=== PATIENT | female | born 1945 | race Caucasian/White ===

== ENCOUNTER → 2017-01-07 | Outpatient (CLI) | payer BC ==
[~2017-01-07] MED LIST: AMOX500C3 PO; CHOL1TAB46 PO; COLE1TAB PO; GABA600T PO; LACTCAP3 PO; LORA10CA2 PO; MAGN400T5 PO; NSNN50; NZRCR TOP; PSYL0.524 PO; TRIA0.1C20 TOP; ZOLE5INJ IV
[2017-01-07 13:01] LABS: ALT/SGPT 18 U/L (12-78); AST/SGOT 15 U/L (15-37); BLOOD UREA NITROGEN 14 mg/dl (7-18); BUN/CREATININE RATIO 20.4 (10-20); CALCIUM 9.2 mg/dl (8.5-10.1); CARBON DIOXIDE 29 mmol/L (21-32); CHLORIDE 106 mmol/L (98-107); CHOLESTEROL 193 mg/dl (0-200); CREATININE 0.68 mg/dl (0.60-1.20); GLUCOSE 103 mg/dl (70-99); MAGNESIUM 1.6 mg/dl (1.8-2.4); SODIUM 141 mmol/L (136-145); TRIGLYCERIDES 67 mg/dl (0-150); VERY LOW DENSITY LIPOPROT CALC 13 mg/dl
[2017-01-07 13:11] LABS: ALB/GLOB RATIO 0.9 (0.9-2); ALKALINE PHOSPHATASE 77 U/L (45-117); CHOLESTEROL/HDL RATIO 2.1; HDL CHOLESTEROL 93 mg/dl; LDL CHOLESTEROL CALCULATED 87 mg/dl
== END | disposition home or self-care (01) ==
LOC: C.LABPVFM 08:15
PROVIDERS: ATTEND Family Medicine
DX: Z00.00 Encounter for general adult medical examination without abnormal findings (principal); Z79.899 Other long term (current) drug therapy

== ENCOUNTER → 2017-07-16 | Outpatient (CLI) | payer BC ==
--- NOTE | 2017-07-16 13:55 | MAMMOGRAPHY REPORT ---
UNILATERAL RIGHT DIGITAL SCREENING MAMMOGRAM TOMOSYNTHESIS WITH CAD: 07/16/2017 CLINICAL HISTORY: Asymptomatic. Personal history of breast cancer. TECHNIQUE: Breast tomosynthesis in addition to standard 2D mammography was performed. Current study was also evaluated with a Computer Aided Detection (CAD) system. COMPARISON: Comparison is made to exams dated: 07/15/2016 mammogram, 07/13/2015 mammogram, 05/26/2014 m ammogram, 05/25/2013 mammogram, 05/20/2012 mammogram, and 05/15/2011 mammogram - [facility]. BREAST COMPOSITION: There are scattered areas of fibroglandular density in the right breast. FINDINGS: There are no suspicious masses, calcifications, or areas of architectural distortion noted within the right breast. There has been no significant interval change compared to prior exams. IMPRESSION: ACR BI-RADS CATEGORY 2: BENIGN There is no mammographic evidence of malignancy in the right breast. A 1 year screening mammogram is recommended. The patient will receive written notification of the results. Approximately 10% of breast cancers are not detected with mammography. A negative mammographic report should not delay biopsy if a clinically suggestive mass is present. Belén Clarke M.D. ah/:07/16/2017 12:13:13 [employer] Manager: Kalee SANCHEZ(Antony)(M), [facility] letter sent: Normal 1/2 BI-RADS Code: ACR BI-RADS Category 2: Benign
== END | disposition home or self-care (01) ==
LOC: C.MAMM 11:25
PROVIDERS: ATTEND Obstetrics & Gynecology
DX: N64.89 Other specified disorders of breast (principal); Z85.3 Personal history of malignant neoplasm of breast; Z90.12 Acquired absence of left breast and nipple

== ENCOUNTER → 2017-07-31 | Outpatient (CLI) | payer BC | END | disposition home or self-care (01) | LOC: C.PAPS 11:40 | PROVIDERS: ATTEND Obstetrics & Gynecology | DX: Z01.411 Encounter for gynecological examination (general) (routine) with abnormal findings (principal); R87.616 Satisfactory cervical smear but lacking transformation zone; Z78.0 Asymptomatic menopausal state ==

== ENCOUNTER → 2017-09-07 | Day surgery (SDC) | payer BC ==
[2017-09-01 10:08] VITALS: Ht 172.7 cm; Wt 88.6 kg
[~2017-09-07] VITALS: Ht 172.7 cm; Wt 88.6 kg
[~2017-09-07] MED LIST changes: +BIOT1CAP8 PO; +CRAN1TAB6 PO; +FLUT0.15 NAE; -GABA600T PO; +JUICE PLUS PO; +LIDOCAINE HCL 2% 2 ML VIAL (20MG/ML) ONE; +MAGN1CAP4 PO; -MAGN400T5 PO; +MISCCAP52 PO; +MUPIOIN4 NAE; +NRN/300 PO; -NSNN50; -NZRCR TOP; +OMEP20TA PO; +PROPOFOL IV EMULSION 10 MG/ML 20 ML VIAL IV ONE; +SODIUM CHLORIDE 0.9% 500ML 500 ML IV ONE; -TRIA0.1C20 TOP
--- NOTE | 2017-09-07 08:54 | Endo History and Physical ---
History & Physical Date of Service: Sep 07, 2017. Chief Complaint: history of colon cancer,5 year F/U Referring Physician: Dr. Jimmie Betancourt History of Present Illness h/o colon cancer Past Surgical History Hx Cardiac Surgery: No Hx Internal Defibrillator: No Hx Pacemaker: No Hx Abdominal Surgery: Yes (TUBAL LIGATION) Hx of Implantable Prosthesis: No Hx Post-Op Nausea and Vomiting: No Hx Cancer Surgery: Yes (COLON CANCER REMOVAL WITH COLOSTOMY AND REVERSAL) Hx Thoracic Surgery: Yes (LUNG SURGERY FOR SARCOIDOSIS) Hx Orthopedic: Yes (LT LEG SURGERY X2, LT DEVIN) Hx Urinary Tract Surgery: No (UPPER FACE LIFT, TONSILLECTOMY) Family History None Social History Smoking Status: Never Smoker Hx Substance Use: No Hx Alcohol Use: Yes (1 DRINK/DAY) Allergies Coded Allergies: Nickel (Verified Allergy, Unknown, ITCHY RASH, 09/01/17) Succinylcholine (Verified Allergy, Unknown, DIFFICULTY REVERSING MEDICATION AFTER PROCEDURE, 09/01/17) Current Medications Reported Home Medications Medications Dose Route/Sig Max Daily Dose Days Date Category Bactroban Nasal (Mupirocin Calcium) 2 % Oin 1 Gm ANGELO BID PRN 09/01/17 Reported [Juice Plus] 1 Tab PO UD 09/01/17 Reported Turmeric Curcumin ([employer] Products) 1 Cap Cap 1 Cap PO QAM 09/01/17 Reported Omeprazole 20 Mg Tab 1 Tab PO QAM 09/01/17 Reported Flonase Allergy Relief (Fluticasone Propionate (Nasal)) 50 Mcg/Act Spr 2 Sprays ANEGLO BID 09/01/17 Reported Cranberry (Cranberry (Vaccinium Macrocarp) 600 Mg Tab 1 Tab PO QAM 09/01/17 Reported Biotin 1 Mg Cap 1 Cap PO QAM 09/01/17 Reported Magnesium (Magnesium Oxide) 500 Mg Cap 1 Cap PO QPM 09/01/17 Reported Neurontin (Gabapentin) 300 Mg Cap 300 Mg PO BID 09/01/17 Reported Vitamin D3 (Cholecalciferol) 5,000 Unit Tab 1 Tab PO QPM 01/08/15 Reported Reclast (Zoledronic Acid) 5 Mg/100 Ml Inj 1 Dose IV YEARLY 01/08/15 Reported Metamucil (Psyllium) 0.52 Gm Cap 1 Cap PO QPM 01/08/15 Reported Colestid (Colestipol Hcl) 1 Gm Tab 3 Tabs PO QPM 01/08/15 Reported Colestid (Colestipol Hcl) 1 Gm Tab 8 Tabs PO QAM 01/08/15 Reported Claritin (Loratadine) 10 Mg Cap 10 Mg PO DAILY PRN 01/08/15 Reported Amoxil (Amoxicillin) 500 Mg Cap 2,000 Mg PO DAILY PRN 01/08/15 Reported Acidophilus (Lactobacillus) 1 Cap Cap 1 Cap PO QPM 01/08/15 Reported Vital Signs Weight (Kilograms): 88.64 Height (Feet): 5 Height (Inches): 8 Date Time Temp Pulse Resp B/P (MAP) Pulse Ox O2 Delivery O2 Flow Rate FiO2 09/07/17 08:21 36.9 92 18 143/73 (96) 93 Room Air Physical Exam General Appearance: WD/WN Respiratory/Chest: Auscultation: breath sounds normal Cardiovascular: Heart Auscultation: RRR Abdomen: Inspection & Palpation: soft Assessment and Plan h/o colon cancer - cscopy
--- NOTE | 2017-09-07 09:41 | Discharge Instructions ---
Endoscopy Patient Instructions Date / Procedure(s) Performed Sep 07, 2017. Colonoscopy Allergy Information Coded Allergies: Nickel (Verified Allergy, Unknown, ITCHY RASH, 09/01/17) Succinylcholine (Verified Allergy, Unknown, DIFFICULTY REVERSING MEDICATION AFTER PROCEDURE, 09/01/17) Discharge Date / Findings Sep 07, 2017. Diminutive polyps, removed. Anal stenosis. Diverticulosis. Radiation proctitis. Medication Instructions Stopped Medication(s): STOPPED ALL SUPPLEMENTS ON THURSDAY Provider Instructions Activity Restrictions - No exercising or heavy lifting for 24 hours. - Do not drink alcohol the day of the procedure. - Do not drive a car or operate machinery until the day after the procedure. - Do not make any important decisions or sign important papers in 24 hours after the procedure. Following Day: - Return to full activity which may include returning to work/school. Diet Start your diet with liquids and light foods (jello, soup, juice, toast). Then eat your usual diet if not nauseated. Treatment For Common After Affects For mild abdominal pain, bloating, or excessive gas: - Rest - Eat lightly - Lie on right side Follow-Up Information Follow-up with Dr. Jimmie Betancourt as scheduled Anesthesia Information What You Should Know You have had a procedure that required some medicine to reduce anxiety and discomfort. This treatment is called moderate sedation. After receiving the treatment, you may be sleepy, but you will be able to breathe on your own. The effects of the treatment may last for several hours. Follow these instructions along with Activity/Diet recommendations noted above: * Do NOT do anything where dizziness or clumsiness would be dangerous. * Rest quietly at home today, then you can be up and about tomorrow. * Have a responsible person stay with you the rest of today. * You may have had an I.V. today. If so, you may take the dressing off later today. Recommendations Call your doctor if: * Trouble breathing * Continuous vomiting for more than 24 hours * Temperature above 101 degrees * Severe abdominal pain or bloating * Pain not relieved by pain medicine ordered * There is increased drainage or redness from any incision * A large amount of rectal bleeding greater than 2-3 tablespoons. (If you had a polyp/s removed or have hemorrhoids, a small amount of blood - from the rectum is to be expected.) * You have any unanswered questions or concerns. IN THE EVENT OF A SERIOUS EMERGENCY, GO TO THE NEAREST EMERGENCY ROOM Your discharge instructions were prepared by provider Tosin Weiner. Patient Instructions Signature Page Josefa Osuna Patient (or Guardian) Signature/Date: I have read and understand the instructions given to me by my caregivers. Caregiver/RN/Doctor Signature/Date: The above-named patient and/or guardian has received patient instructions on this date. + Original Patient Signature Page (only) stays with chart. Please make copy for patient.
--- NOTE | 2017-09-07 09:41 | GI REPORT ---
Procedure Date: 09/07/2017 8:57 AM Procedure: Colonoscopy Indications: High risk colon cancer surveillance: Personal history of colon cancer Medicines: See the Anesthesia note for documentation of the administered medications Complications: No immediate complications. Estimated Blood Loss: Estimated blood loss: none. Procedure: Pre-Anesthesia Assessment: - ASA Grade Assessment: II - A patient with mild systemic disease. After I obtained informed consent, the scope was passed under direct vision. Throughout the procedure, the patient's blood pressure, pulse, and oxygen saturations were monitored continuously. The scope was introduced through the anus and advanced to the cecum, identified by appendiceal orifice and ileocecal valve. The colonoscopy was performed without difficulty. The patient tolerated the procedure well. The quality of the bowel preparation was good. Findings: There was marked anal stenosis; I could not pass my finger through her anal canal. An upper endoscope was used to complete her colonoscopy. There were changes of radiation proctitis in the rectum, with a small rectum and a moderate number of small telangiectasias in the rectum. Rectal retroflexion was not performed. There was an end-to-side anastamosis at 27 cm. There were a few sigmoid diverticula. Two 1-2 mm polyps seen in the sigmoid colon, removed with a biopsy forceps. The remainder of the colon was normal. Impression: Anal stenosis. Radiation proctitis. Unremarkable anastamosis. Diverticulosis. Diminutive polyps. Recommendation: Repeat exam in 5 years for CRC surveillance. - Discharge patient to home. Tosin Wick M.D. Tosin Wick MD 09/07/2017 9:40:48 AM This report has been signed electronically. Note Initiated On: 09/07/2017 8:57 AM I attest to the content of the Intraoperative Record and orders documented therein, exceptions below
[2017-09-07 10:04] VITALS: BP 135/78; PULSE 79; O2SAT 94
--- NOTE | 2017-09-07 10:16 | Anesthesiology Progress Note ---
Anesthesia Post Op Note Date & Time Sep 07, 2017 at 10:16 Vital Signs Pain Intensity: 0 Vital Signs Past 12 Hours Date Time Temp Pulse Resp B/P (MAP) Pulse Ox O2 Delivery O2 Flow Rate FiO2 09/07/17 10:04 79 16 135/78 (97) 94 Room Air 09/07/17 09:49 76 16 150/60 (90) 94 Room Air 09/07/17 09:34 82 16 120/58 (78) 97 Room Air 09/07/17 08:21 36.9 92 18 143/73 (96) 93 Room Air Notes Mental Status: alert / awake / arousable, participated in evaluation Pt Amnestic to Procedure: Yes Nausea / Vomiting: adequately controlled Pain: adequately controlled Airway Patency, RR, SpO2: stable & adequate BP & HR: stable & adequate Hydration State: stable & adequate Anesthetic Complications: no major complications apparent
== END | disposition home or self-care (01) ==
LOC: C.GI 07:53
PROVIDERS: ATTEND Internal Medicine Gastroenterology
DX: Z12.11 Encounter for screening for malignant neoplasm of colon (principal); D12.5 Benign neoplasm of sigmoid colon; K62.4 Stenosis of anus and rectum; K62.7 Radiation proctitis; I78.1 Nevus, non-neoplastic; K57.30 Diverticulosis of large intestine without perforation or abscess without bleeding; Z85.038 Personal history of other malignant neoplasm of large intestine; Z98.0 Intestinal bypass and anastomosis status; Z79.899 Other long term (current) drug therapy

== ENCOUNTER → 2017-10-27 | Day surgery (SDC) | payer BC ==
[2017-10-21 13:27] VITALS: Ht 172.7 cm; Wt 88.6 kg
[~2017-10-27] VITALS: Ht 172.7 cm; Wt 88.6 kg
[~2017-10-27] MED LIST changes: -SODIUM CHLORIDE 0.9% 500ML 500 ML IV ONE
[2017-10-27 09:00] VITALS: TEMP 36.9
--- NOTE | 2017-10-27 10:08 | Endo History and Physical ---
History & Physical Date of Service: Oct 27, 2017. Chief Complaint: HISTORY OF COLON CANCER Referring Physician: DR CASTRO History of Present Illness H/o colon cancer Past Surgical History Hx Cardiac Surgery: No Hx Internal Defibrillator: No Hx Pacemaker: No Hx Abdominal Surgery: Yes (TUBAL LIGATION) Hx of Implantable Prosthesis: No Hx Post-Op Nausea and Vomiting: No Hx Cancer Surgery: Yes (COLON CANCER REMOVAL WITH COLOSTOMY AND REVERSAL, LEFT MASTECTOMY W/RECONST) Hx Thoracic Surgery: Yes (LUNG SURGERY FOR SARCOIDOSIS) Hx Orthopedic: Yes (LT LEG SURGERY X2, LT DEVIN) Hx Urinary Tract Surgery: No Family History None Social History Smoking Status: Never Smoker Hx Substance Use: No Hx Alcohol Use: Yes (1 DRINK/DAY) Allergies Coded Allergies: Nickel (Verified Allergy, Unknown, ITCHY RASH, 10/27/17) Succinylcholine (Verified Allergy, Unknown, DIFFICULTY REVERSING MEDICATION AFTER PROCEDURE, 10/27/17) Current Medications Reported Home Medications Medications Dose Route/Sig Max Daily Dose Days Date Category Bactroban Nasal (Mupirocin Calcium) 2 % Oin 1 Gm ANGELO BID PRN 09/01/17 Reported [Juice Plus] 1 Tab PO UD 09/01/17 Reported Turmeric Curcumin ([employer] Natural Products) 1 Cap Cap 1 Cap PO QAM 09/01/17 Reported Omeprazole 20 Mg Tab 1 Tab PO QAM 09/01/17 Reported Flonase Allergy Relief (Fluticasone Propionate (Nasal)) 50 Mcg/Act Spr 2 Sprays ANGELO BID 09/01/17 Reported Cranberry (Cranberry (Vaccinium Macrocarp) 600 Mg Tab 1 Tab PO QAM 09/01/17 Reported Biotin 1 Mg Cap 1 Cap PO QAM 09/01/17 Reported Magnesium (Magnesium Oxide) 500 Mg Cap 1 Cap PO QPM 09/01/17 Reported Neurontin (Gabapentin) 300 Mg Cap 300 Mg PO BID 09/01/17 Reported Vitamin D3 (Cholecalciferol) 5,000 Unit Tab 1 Tab PO QPM 01/08/15 Reported Reclast (Zoledronic Acid) 5 Mg/100 Ml Inj 1 Dose IV YEARLY 01/08/15 Reported Metamucil (Psyllium) 0.52 Gm Cap 1 Cap PO QPM 01/08/15 Reported Colestid (Colestipol Hcl) 1 Gm Tab 3 Tabs PO QPM 01/08/15 Reported Colestid (Colestipol Hcl) 1 Gm Tab 8 Tabs PO QAM 01/08/15 Reported Claritin (Loratadine) 10 Mg Cap 10 Mg PO DAILY PRN 01/08/15 Reported Amoxil (Amoxicillin) 500 Mg Cap 2,000 Mg PO DAILY PRN 01/08/15 Reported Acidophilus (Lactobacillus) 1 Cap Cap 1 Cap PO QPM 01/08/15 Reported Vital Signs Weight (Kilograms): 88.64 Height (Feet): 5 Height (Inches): 8 Date Time Temp Pulse Resp B/P (MAP) Pulse Ox O2 Delivery O2 Flow Rate FiO2 10/27/17 09:00 36.9 98 20 145/79 (101) 94 Room Air Physical Exam General Appearance: no apparent distress Respiratory/Chest: Auscultation: breath sounds normal Cardiovascular: Heart Auscultation: RRR Abdomen: Inspection & Palpation: soft Assessment and Plan H/o colon cancer, polyps with HGD - flex sig
--- NOTE | 2017-10-27 10:58 | GI REPORT ---
Procedure Date: 10/27/2017 10:19 AM Procedure: Colonoscopy Indications: Follow-up for history of colon polyps - pt s/p h/o pelvic XRT for CRC, had diminutive polyp on surveillance exam in Aug 2017 with HGD now for followup Medicines: General Anesthesia Complications: No immediate complications. Estimated Blood Loss: Estimated blood loss: none. Procedure: Pre-Anesthesia Assessment: - ASA Grade Assessment: III - A patient with severe systemic disease. After I obtained informed consent, the scope was passed under direct vision. Throughout the procedure, the patient's blood pressure, pulse, and oxygen saturations were monitored continuously. The scope was introduced through the anus and advanced to the ileocolonic anastomosis. The colonoscopy was performed without difficulty. The patient tolerated the procedure well. The quality of the bowel preparation was good. Findings: There was marked anal stenosis. There were multiple telangiectasias just proximal to the anus. There was a small ulcer just proximal to the anus. There was a 1 mm polyp at 10 cm removed by biopsy forceps. There was a small ulcer at 20 with a flat pigmented spot. Edges of ulcer were biopsied. There were a few small sigmoid diverticula. There was an end to side ileo colonic anastamosis at 27 cm. Biopsies taken every 5 cm in four quadrants. Chromoscopy performed using methylene blue in the lavage solution; no dysplasia was noted. Recommendation: - Discharge patient to home. - Follow up pathology results. Tosin Wick M.D. Tosin Wick MD 10/27/2017 10:57:52 AM This report has been signed electronically. Note Initiated On: 10/27/2017 10:19 AM I attest to the content of the Intraoperative Record and orders documented therein, exceptions below
--- NOTE | 2017-10-27 10:59 | Discharge Instructions ---
Endoscopy Patient Instructions Date / Procedure(s) Performed Oct 27, 2017. Flex Sig Allergy Information Coded Allergies: Nickel (Verified Allergy, Unknown, ITCHY RASH, 10/27/17) Succinylcholine (Verified Allergy, Unknown, DIFFICULTY REVERSING MEDICATION AFTER PROCEDURE, 10/27/17) Discharge Date / Findings Oct 27, 2017. Diminutive polyp, XRT proctitis, small ulcers at anal verge and at 20 cm. Provider Instructions Activity Restrictions - No exercising or heavy lifting for 24 hours. - Do not drink alcohol the day of the procedure. - Do not drive a car or operate machinery until the day after the procedure. - Do not make any important decisions or sign important papers in 24 hours after the procedure. Following Day: - Return to full activity which may include returning to work/school. Diet Start your diet with liquids and light foods (jello, soup, juice, toast). Then eat your usual diet if not nauseated. Treatment For Common After Affects For mild abdominal pain, bloating, or excessive gas: - Rest - Eat lightly - Lie on right side Follow-Up Information Follow-up with DR CASTRO as scheduled Anesthesia Information What You Should Know You have had a procedure that required some medicine to reduce anxiety and discomfort. This treatment is called moderate sedation. After receiving the treatment, you may be sleepy, but you will be able to breathe on your own. The effects of the treatment may last for several hours. Follow these instructions along with Activity/Diet recommendations noted above: * Do NOT do anything where dizziness or clumsiness would be dangerous. * Rest quietly at home today, then you can be up and about tomorrow. * Have a responsible person stay with you the rest of today. * You may have had an I.V. today. If so, you may take the dressing off later today. Recommendations Call your doctor if: * Trouble breathing * Continuous vomiting for more than 24 hours * Temperature above 101 degrees * Severe abdominal pain or bloating * Pain not relieved by pain medicine ordered * There is increased drainage or redness from any incision * A large amount of rectal bleeding greater than 2-3 tablespoons. (If you had a polyp/s removed or have hemorrhoids, a small amount of blood - from the rectum is to be expected.) * You have any unanswered questions or concerns. IN THE EVENT OF A SERIOUS EMERGENCY, GO TO THE NEAREST EMERGENCY ROOM Your discharge instructions were prepared by provider Tosin Weiner. Patient Instructions Signature Page Josefa Enrrique Patient (or Guardian) Signature/Date: I have read and understand the instructions given to me by my caregivers. Caregiver/RN/Doctor Signature/Date: The above-named patient and/or guardian has received patient instructions on this date. + Original Patient Signature Page (only) stays with chart. Please make copy for patient.
--- NOTE | 2017-10-27 11:07 | Anesthesiology Progress Note ---
Anesthesia Post Op Note Date & Time Oct 27, 2017 at 11:07 Vital Signs Pain Intensity: 0 Vital Signs Past 12 Hours Date Time Temp Pulse Resp B/P (MAP) Pulse Ox O2 Delivery O2 Flow Rate FiO2 10/27/17 11:03 76 16 133/73 (93) 97 Room Air 10/27/17 10:48 70 13 116/62 (80) 97 Room Air 10/27/17 09:00 36.9 98 20 145/79 (101) 94 Room Air Notes Mental Status: alert / awake / arousable, participated in evaluation Pt Amnestic to Procedure: Yes Nausea / Vomiting: adequately controlled Pain: adequately controlled Airway Patency, RR, SpO2: stable & adequate BP & HR: stable & adequate Hydration State: stable & adequate Anesthetic Complications: no major complications apparent
[2017-10-27 11:18] VITALS: BP 149/77; PULSE 83; O2SAT 96
== END | disposition home or self-care (01) ==
LOC: C.GI 08:22
PROVIDERS: ATTEND Internal Medicine Gastroenterology
DX: Z12.11 Encounter for screening for malignant neoplasm of colon (principal); Z85.038 Personal history of other malignant neoplasm of large intestine; K62.4 Stenosis of anus and rectum; I78.1 Nevus, non-neoplastic; K63.5 Polyp of colon; K57.30 Diverticulosis of large intestine without perforation or abscess without bleeding; Z98.0 Intestinal bypass and anastomosis status; D86.9 Sarcoidosis, unspecified; K21.9 Gastro-esophageal reflux disease without esophagitis; G62.9 Polyneuropathy, unspecified; M19.90 Unspecified osteoarthritis, unspecified site; Z79.899 Other long term (current) drug therapy

== ENCOUNTER → 2017-12-28 | Outpatient (CLI) | payer BC ==
[~2017-12-28] MED LIST changes: -LIDOCAINE HCL 2% 2 ML VIAL (20MG/ML) ONE; -PROPOFOL IV EMULSION 10 MG/ML 20 ML VIAL IV ONE
[2017-12-28 14:07] LABS: ALBUMIN 3.4 gm/dl (3.4-5.0); ALT/SGPT 15 U/L (12-78); AST/SGOT 14 U/L (15-37); BLOOD UREA NITROGEN 10 mg/dl (7-18); CALCIUM 9.4 mg/dl (8.5-10.1); CARBON DIOXIDE 28 mmol/L (21-32); CREATININE 0.64 mg/dl (0.60-1.20); GLUCOSE 108 mg/dl (70-99); SODIUM 139 mmol/L (136-145)
[2017-12-28 14:11] LABS: ALKALINE PHOSPHATASE 109 U/L (45-117); CHOLESTEROL 188 mg/dl (0-200); LDL CHOLESTEROL CALCULATED 87 mg/dl; TOTAL PROTEIN 7.6 gm/dl (6.4-8.2)
== END | disposition home or self-care (01) ==
LOC: C.LABPVFM 08:15
PROVIDERS: ATTEND Nurse Practitioner Family
DX: Z00.00 Encounter for general adult medical examination without abnormal findings (principal); Z79.899 Other long term (current) drug therapy; E83.42 Hypomagnesemia

== ENCOUNTER 2025-09-10 12:49 | Inpatient (IN) ==
--- NOTE | 2025-09-10 13:15 | Emergency Department Note ---
Impression & Plan Closed fracture of right tibial plateau ED Provider Note CHIEF COMPLAINT: Difficulty walking HISTORY OF PRESENTING ILLNESS: This 80-year-old female patient presents to the emergency department via EMS for evaluation of difficulty ambulating. The patient states that she fell 8 days ago injuring the right knee. The patient saw her PCP and was getting better, but now she is unable to ambulate due to the pain. She has had continued swelling of the knee with increased swelling and warmth of the right lower extremity. She states that it seems like she twisted the right knee as she fell. She did not hit her head and there was no LOC. She is not on any blood thinners. She normally uses a walker to ambulate. She denies any neck or back pain. She denies any pain to the remainder of the extremities. Denies chest pain, SOB, abdominal pain, nausea, or vomiting. The patient was seen by her PCP on 09/04/2025. The patient apparently bent over to feed her cat and when she stood up her feet slid out from under her and she landed on her buttocks. She did not hit her head. Since that time she has had right knee pain and swelling. At the office visit the patient was apparently able to ambulate with minimal pain. Her PCP did not feel that x-rays are needed at that time. The patient did have a venous Doppler of the bilateral lower extremities on 08/31/2025 that showed no evidence for DVT. Bilateral GSV's are patent 2 months post Varithena. Appropriate closure bilateral GSV calf varices 2 months post Varithena. REVIEW OF SYSTEMS: See HPI for pertinent positives and pertinent negatives. ALLERGIES: Succinylcholine, nickel, ragweed MEDICATIONS: See below PAST MEDICAL HISTORY: See below PHYSICAL EXAM: VITALS: Vitals are noted on the nurse's note and reviewed by myself. GENERAL: No acute distress, non-diaphoretic. SKIN: The skin was without obvious lacerations or abrasions. See musculoskeletal exam. Capillary reflex less than 2 seconds. HEAD: Normocephalic. EYES: Pupils equal round and reactive to light and accommodation. Conjunctivae without injection, sclerae without icterus. Extraocular movements intact. NOSE: Patent without discharge. No septal hematoma or bleeding. MOUTH: Mucous membranes moist. Pharynx without erythema or exudate. Uvula midline. Airway patent. Tongue does not deviate. NECK: Supple without nuchal rigidity. Cervical spine is nontender. Full range of motion of the neck without tenderness. HEART: Regular rate and rhythm without murmurs gallops or rubs. LUNGS: Clear to auscultation bilaterally without wheezes, rales or rhonchi. No retractions or accessory muscle use. CHEST: No chest wall tenderness. ABDOMEN: Positive bowel sounds x 4. Normal tympanic percussion. Soft, nontender, without masses or organomegaly. No guarding or rebound tenderness. MUSCULOSKELETAL: No tenderness of the thoracic or lumbar spine or paraspinal muscles. No tenderness to palpation of the hips or pelvis. The patient is maximally tender to palpation over the entire right knee. She has decreased range of motion of the right knee due to pain. She is able to fully extend the right knee, but unable to flex the right knee much due to pain. There is also significant edema, warmth, and developing erythema to the right lower extremity especially compared to the left. However, the compartments are still soft and no significant tenderness to palpation over the compartments. No bony tenderness to palpation of the right femur, tib-fib, ankle, or foot of the right lower extremity. Full range of motion without tenderness to palpation in all remaining extremities. Bilateral dorsalis pedis and posterior tibial pulses 2+ and equal. The patient has peripheral neuropathy, but states that the sensation in her bilateral lower extremities is normal per her baseline. NEURO: Patient was alert and oriented to person place and time. Normal mental status exam. No focal neurological deficits. DIFFERENTIAL DIAGNOSIS: Differential diagnosis includes DVT, SVT, fracture, subluxation, dislocation, contusion, ligamentous injury, neurovascular, compartment syndrome, rhabdomyolysis, as well as other pathologies. ED COURSE AND MEDICAL DECISION MAKING: MEDICATIONS GIVEN: Tylenol 1000 mg IV INTERPRETATION OF LABS: I interpreted the labs with full lab results as below in the lab section of this note. Laboratory results pertinent to the emergent complaint are discussed in the MDM section below. The patient was advised to follow up with their PCP and/or specialist(s) for further outpatient monitoring and management of any abnormal results. INTERPRETATION OF IMAGING: Imaging studies were interpreted by myself and read by radiology as per the imaging section of this note. The patient was advised to follow up with their PCP and/or specialist(s) for further outpatient management of any non-emergent abnormal findings. X-ray of the right knee showed an acute comminuted midline and medial tibial plateau fracture. Venous Doppler of the right lower extremity was negative for DVT. CT scan of the right knee without contrast with 3D reconstruction showed an acute traumatic comminuted tibial plateau fracture involving both the medial and the lateral articular surfaces. There is a moderate impaction and depression in the medial tibial plateau. Moderate joint effusion. CONSULTATIONS: Dr. Cobb of orthopedics locally. Dr. Rothman of orthopedics at [facility]. On-call hospitalist. SPLINTING: Definitive fracture care was performed by myself. The patient was placed in a 6 inch Webril wrap from the mid thigh down to the toes with a knee immobilizer over top under my direction. Neurovascular status was rechecked and intact. MDM SUMMARY: I examined the patient. The patient fell 8 days ago injuring the right knee. The patient saw her PCP, but her symptoms had improved by that time and no x- rays were obtained. The patient has had continued pain and swelling in the right knee that is extending down her leg. She is now having difficulty ambulating because of the pain. She denies any other injury or trauma from the fall. She did not hit her head. There was no loss of consciousness. She is not on any blood thinners. An IV lock was placed and labs were drawn. The patient was given Tylenol 1000 mg IV for pain. White blood cell count elevated at 12.37. Hemoglobin low at 11.3. Platelet count normal at 272. aPTT 32, but other coags were normal. Sodium 132 and glucose 130, but BMP otherwise normal. X-ray of the right knee showed an acute comminuted midline and medial tibial plateau fracture. Venous Doppler of the right lower extremity was negative for DVT. I spoke with Dr. Cobb of orthopedics locally who recommended a CT scan of the knee with 3D reconstruction to determine whether the patient would require transfer or intervention locally. CT scan of the right knee without contrast with 3D reconstruction showed an acute traumatic comminuted tibial plateau fracture involving both the medial and the lateral articular surfaces. There is a moderate impaction and depression in the medial tibial plateau. Moderate joint effusion. I spoke with Dr. Cobb of orthopedics again after the results of the CT scan were obtained. He reviewed the images himself. He stated that the tibial plateau repair would be too complicated to be performed locally and recommended the patient be transferred to a tertiary care if the patient desired surgical repair. I spoke with Dr. Rothman of orthopedics at [facility]. He was able to review the images himself. He also discussed the case and CT scan images with trauma orthopedics at [facility]. He stated that due to the appearance of the fracture along with the depression as well as the patient's age that they would recommend acute arthroplasty rather than tibial plateau repair. Unfortunately, a surgeon able to perform an acute arthroplasty would not be available at [facility] for 1 to 1.5 weeks. He recommended I reach out to local orthopedics to see if the arthroplasty could be performed locally. I discussed the recommendation for acute arthroplasty with the patient. Initially she was unsure of whether she wanted to undergo a knee replacement versus conservative management of the fracture with knee replacement if she did not improve. Either way, the patient has been unable to ambulate with her walker in a nonweightbearing status safely at home. The patient also lives alone and does not have anyone to care for her on a regular basis at this time. I spoke with Dr. Cobb of orthopedics again and the patient will be admitted by medicine locally with orthopedic consult to determine further management of the fracture. There are no symptoms or signs of compartment syndrome on exam at this time, but the patient will need to be monitored closely for compartment syndrome secondary to the nature of her fracture. I had a meaningful discussion about this patient with Dr. Aldana who agrees with my assessment and the treatment plan. I spoke with the on-call hospitalist who agreed to admit the patient for further evaluation and treatment. Please refer to their dictation for further details. The patient's care was transferred in stable condition. DIAGNOSIS: Right tibial plateau fracture Attending Attestation: I Erick Aldana MD I have reviewed the advanced practitioner's documentation and agree with the plan of care. I accept the responsibility for the associated risk of managing the patient. I performed a substantive portion of the visit including involvement in all aspects of medical decision making. Past Med/Surg History Problem List (Updated 09/10/25 @ 21:59 by Sofia Oneill PA-C) Closed fracture of right tibial plateau (Acute) Urinary frequency with urgency Fall (Acute) Right knee pain Bilateral lower extremity edema Nausea & vomiting Abdominal cramping UTI (urinary tract infection), uncomplicated Chronic venous insufficiency Mild peripheral edema Decreased hearing of right ear History of malignant neoplasm of anus Wears hearing aid in both ears Resound RE762 disp 2019 History of tibial fracture (~06/17/22) Fracture of left tibial plateau Pes anserine bursitis Malignant neoplasm of lower-inner quadrant of left breast in female, estrogen receptor positive (Chronic) Enlarged thyroid gland Iron deficiency anemia Uses hearing aid (Acute) Peripheral neuropathy (Chronic) Hypomagnesemia (Chronic) Hypertension Bilateral tinnitus Sensorineural hearing loss (SNHL) of both ears Mil sloping to sev SNHL AU Menopause (Acute) Encounter for cosmetic procedure Sarcoidosis (Chronic) Osteoporosis (Chronic) Hearing loss (Acute) Early satiety (Acute) Chronic reflux esophagitis (Chronic) Arthritis (Acute) Acquired deformity of foot (Acute) Abnormal gait (Chronic) Medical History 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 Osteoarthritis Degenerative disc disease Cancer of anal sphincter Neuropathy Sarcoidosis of lung Surgical History Status post right breast lumpectomy H/O right breast biopsy History of facelift History of lung surgery History of open reduction and internal fixation (ORIF) procedure History of total left hip replacement History of bilateral tubal ligation History of colonoscopy History of esophagogastroduodenoscopy (EGD) History of colostomy reversal History of colostomy History of total mastectomy of left breast History of left breast biopsy History of wisdom tooth extraction History of tooth extraction History of root canal procedure History of tonsillectomy and adenoidectomy Family History Unknown Diabetes Cancer Other No family history of adverse response to anesthesia Denies family history of Ovarian cancer Prostate cancer Myocardial infarction Breast cancer Colorectal cancer Social History Smoking Status: Never smoker Tobacco Type: Declines Second Hand Exposure: No; Do You Dip or Chew Tobacco: No; Tobacco Cessation Education Requested by Patient: No Hx Alcohol Use: Yes Alcohol type: hard liquor Alcohol type Comment: Rum Alcohol Intake Frequency: 4 or More x per/Week Alcohol Intake Frequency Comment: 1 glass per day Hx Substance Use: No Preferred Language: Kiswahili Communication Ability: Effective Visual Impairment: Limited Hearing Ability: Use of Hearing Aid 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: No Beliefs That Will Affect Care: None marital status: / Current Living Situation: Alone current occupational status: retired How many Children do You have: 1 Other Information That Helps Us Care for You: No Feels Safe at Home: Yes Safety Concerns: Feels Safe At This Time Childhood Exposure to Second-Hand Smoke: Yes Diet: regular caffeine: Yes (1 cup of coffee) during the past year weight has: decreased > 10 lbs Dental Care, Regularly: Yes Physical Activity Frequency: Daily Seatbelt Use: always Sunscreen Use: Yes Do you think of yourself as: straight/heterosexual Sexual Activity: has been sexually active, but not for at least 12 months Gender Identity: Female Assistive Devices: Walker Allergies Allergies Allergy/AdvReac Type Severity Reaction Status Date / Time succinylcholine Allergy Severe DIFFICULTY Verified 09/05/25 13:19 REVERSING MEDICATION AFTER PROCEDURE nickel Allergy Intermediate ITCHY RASH Verified 09/05/25 13:19 ragweed pollen Allergy Intermediate sneezing/watery Verified 09/05/25 13:19 eyes Home Meds Home Medications Medication Instructions Recorded Confirmed Lactobacillus acidophilus 1 cap PO BID 11/18/18 09/10/25 (Acidophilus capsule) loratadine 10 mg tablet (Claritin) 10 mg PO DAILY PRN Allergy Symptoms 11/18/18 09/10/25 amoxicillin 500 mg capsule 2,000 mg PO UD PRN prior to dental 10/07/19 09/10/25 procedure cholecalciferol (vitamin D3) 125 5,000 unit PO BID 12/23/21 09/10/25 mcg (5,000 unit) tablet (Vitamin D3) diphenoxylate-atropine 2.5 1 tab PO QID PRN Diarrhea 12/23/21 09/10/25 mg-0.025 mg tablet (Lomotil) loperamide 2 mg capsule 2 mg PO QID 12/23/21 09/10/25 (Anti-Diarrheal (loperamide)) mupirocin 2 % topical ointment 1 applic topical BID PRN Dry Nasal 12/23/21 09/10/25 Passages lisinopril 5 mg tablet 10 mg PO QAM 03/19/22 09/10/25 colestipol 1 gram tablet See Rx Instructions PO DAILY 08/22/22 09/10/25 tamoxifen 20 mg tablet 20 mg PO QAM 02/19/23 09/10/25 zoledronic acid 5 mg/100 mL in 1 ea IV YEARLY 02/19/23 09/10/25 mannitol 5 %-water intravenous piggybck (Reclast) amiloride 5 mg tablet 5 mg PO QAM 05/01/23 09/10/25 famotidine 20 mg tablet 20 mg PO BID 05/01/23 09/10/25 [id number] 5 mg-zeaxanth 1 cap PO DAILY 05/01/23 09/10/25 1 mg-bilberry 7.5 mg-herbal capsule (Macular Health Formula) gabapentin 600 mg tablet 600 mg PO BID 02/24/25 09/10/25 magnesium chloride 64 mg 64 mg PO DAILY 04/18/25 09/10/25 tablet,extended release vitamin B complex 1 tab PO QAM 04/18/25 09/10/25 Previous Rx's Medication Instructions Recorded ferrous sulfate 325 mg (65 mg 325 mg PO DAILY PRN ANEMIA #30 tabs 12/23/21 iron) tablet (Feosol) Lift Chair #1 ea 03/24/24 econazole nitrate 1 % topical cream 1 applic topical BID PRN rash #15 09/21/24 grams furosemide 40 mg tablet 40 mg PO DAILY PRN edema #90 tabs 04/26/25 fluticasone propionate 50 2 spray intranasal QAM #48 grams 08/14/25 mcg/actuation nasal spray,suspension (Flonase Allergy Relief) Results & Data (ED) Vital Signs Vital Signs - 24 hr 09/10/25 12:45 09/10/25 13:00 09/10/25 13:31 Temperature 36.7 C Temperature Source Oral Pulse Rate 94 H 92 H Pulse Rate [Apical] 89 Pulse Rhythm Regular Pulse Rhythm [Apical] Regular Pulse Strength Normal Pulse Strength [Apical] Normal Respiratory Rate 18 18 Respiratory Effort / Characteristics Non-Labored Spontaneous Non-Labored Respiratory Depth Normal Normal Respiratory Pattern Regular Blood Pressure 137/87 Blood Pressure [Right Arm] 150/69 H Blood Pressure Mean 103 Blood Pressure Mean [Right Arm] 96 Blood Pressure Position Sitting Blood Pressure Position [Right Arm] Pulse Oximetry 93 93 Oxygen Delivery Method Room Air Room Air Sepsis Recent Fever Within 48 Hours No Sepsis New/Unexplained Change in Mental Status N/A Sepsis Action Taken by Nursing No Action Required 09/10/25 14:45 09/10/25 15:14 09/10/25 17:32 Temperature Temperature Source Pulse Rate 90 Pulse Rate [Apical] 88 83 Pulse Rhythm Pulse Rhythm [Apical] Regular Pulse Strength Pulse Strength [Apical] Normal Respiratory Rate 16 18 Respiratory Effort / Characteristics Non-Labored Spontaneous Respiratory Depth Normal Respiratory Pattern Blood Pressure Blood Pressure [Right Arm] 130/81 123/70 Blood Pressure Mean Blood Pressure Mean [Right Arm] 97 87 Blood Pressure Position Blood Pressure Position [Right Arm] Sitting Pulse Oximetry 97 94 Oxygen Delivery Method Room Air Room Air Sepsis Recent Fever Within 48 Hours Sepsis New/Unexplained Change in Mental Status Sepsis Action Taken by Nursing 09/10/25 18:01 09/10/25 19:00 09/10/25 20:00 Temperature Temperature Source Pulse Rate 94 H 103 H Pulse Rate [Apical] 90 Pulse Rhythm Pulse Rhythm [Apical] Pulse Strength Pulse Strength [Apical] Respiratory Rate 20 20 21 Respiratory Effort / Characteristics Respiratory Depth Respiratory Pattern Blood Pressure 138/79 150/108 H Blood Pressure [Right Arm] 144/76 H Blood Pressure Mean 98 122 Blood Pressure Mean [Right Arm] 98 Blood Pressure Position Blood Pressure Position [Right Arm] Sitting Pulse Oximetry 94 Oxygen Delivery Method Room Air Sepsis Recent Fever Within 48 Hours Sepsis New/Unexplained Change in Mental Status Sepsis Action Taken by Nursing 09/10/25 21:00 Temperature Temperature Source Pulse Rate 96 H Pulse Rate [Apical] Pulse Rhythm Pulse Rhythm [Apical] Pulse Strength Pulse Strength [Apical] Respiratory Rate 20 Respiratory Effort / Characteristics Respiratory Depth Respiratory Pattern Blood Pressure 132/95 Blood Pressure [Right Arm] Blood Pressure Mean 107 Blood Pressure Mean [Right Arm] Blood Pressure Position Blood Pressure Position [Right Arm] Pulse Oximetry Oxygen Delivery Method Sepsis Recent Fever Within 48 Hours Sepsis New/Unexplained Change in Mental Status Sepsis Action Taken by Nursing Laboratory Data 09/10/25 13:07 09/10/25 13:07 Lab Results 09/10/25 Range/Units 13:07 WBC 12.37 H (4.8-10.8) K/ul RBC 3.98 L (4.20-5.40) M/uL Hgb 11.3 L (12.0-16.0) g/dL Hct 34.9 L (37.0-47.0) % MCV 87.7 (80.0-100.0) fL MCH 28.4 (25.0-34.0) pg MCHC 32.4 (32.0-36.0) g/dL RDW Std Deviation 42.5 (36.4-46.3) fL RDW Coeff of Lakhwinder 13.3 (11.5-14.5) % Plt Count 272 (130-400) K/uL MPV 10.9 (9.4-12.4) fL Immature Gran % (Auto) 0.8 % Neut % (Auto) 86.2 % Lymph % (Auto) 5.0 % Cache % (Auto) 7.4 % Eos % (Auto) 0.2 % Baso % (Auto) 0.4 % Neut # (Auto) 10.67 H (1.40-6.50) K/uL Lymph # (Auto) 0.62 L (1.20-3.40) K/uL Cache # (Auto) 0.91 H (0.11-0.59) K/uL Eos # (Auto) 0.02 (0.00-0.50) K/uL Baso # (Auto) 0.05 (0.00-0.20) K/uL Immature Gran # (Auto) 0.10 (0.01-0.20) K/uL PT 11.3 (9.0-12.0) Seconds INR 1.1 (0.9-1.1) APTT 32 H (21-31) Seconds PTT Ratio 1.2 Sodium 132 L (136-145) mmol/L Potassium 4.0 (3.5-5.1) mmol/L Chloride 101 (98-107) mmol/L Carbon Dioxide 22 (21-32) mmol/L Anion Gap 9 (3-11) BUN 19 (6-23) mg/dl Creatinine 0.93 (0.6-1.2) mg/dl Est Cr Clr Drug Dosing 48.7 ml/min eGFR 62.13 BUN/Creatinine Ratio 20.4 H (10-20) Glucose 130 H (70-99(Fasting)) mg/dl Calcium 9.1 (8.6-10.3) mg/dl Administered Medications Acetaminophen (Acetaminophen 325 Mg Tab) 650 mg PO Q4H PRN PRN Reason: pain/fever Stop: 10/10/25 23:16 Last Admin: 09/11/25 05:30 Dose: 650 mg Documented By: MNO Fluticasone Propionate (Fluticasone Propionate Na Spr 16 Gm Btl) 2 sprays [facility] [place] Stop: 10/11/25 08:59 Last Admin: 09/11/25 09:17 Dose: 2 sprays Documented By: RLB Lactated Ringer's (Lr) 1,000 mls @ 80 mls/hr IV .[id number] DOROTEO Stop: 09/13/25 21:29 Last Admin: 09/10/25 22:37 Dose: 80 mls/hr Documented By: KMB Pantoprazole Sodium (Protonix) 40 mg in 10 mls @ 5 mls/min IV DAILY DOROTEO Stop: 10/11/25 08:59 Last Admin: 09/11/25 09:17 Dose: 5 mls/min Documented By: RLB Loperamide HCl (Loperamide Hcl 2 Mg Cap) 2 mg PO QID DOROTEO Stop: 10/11/25 08:59 Last Admin: 09/11/25 09:20 Dose: 2 mg Documented By: RLB Tamoxifen Citrate (Tamoxifen Citrate 10 Mg Tablet) 20 mg PO QAM [facility] Stop: 10/11/25 08:59 Last Admin: 09/11/25 09:17 Dose: 20 mg Documented By: ISABEL Co-signed By: alejandro Discontinued Medications Acetaminophen (Ofirmev) 1,000 mg in 100 mls @ 400 mls/hr IV NOW STA Stop: 09/10/25 13:53 Last Infusion: 09/10/25 15:13 Dose: Infused Documented By: Admin: 09/10/25 13:49 Dose: 400 mls/hr Documented By: nrs Imaging Data Radiologist's Impression: Knee X-Ray 09/10/25 13:39 EXAM: Radiographs of the Right Knee 3 Views INDICATION: Posttraumatic pain TECHNIQUE: Three views of the right knee. COMPARISON: No relevant prior studies available. FINDINGS: Bones/joints: There is an acute fracture of the midline and medial tibial plateau. There is approximate 5 mm depression of the medial plateau. No dislocation. Soft tissues: Periarticular soft tissue swelling noted. IMPRESSION: Acute comminuted midline and medial tibial plateau fracture. ACT 112: N/A Electronically signed by Lacey Steinberg 09-10-2025 3:48 PM Venous Doppler Study 09/10/25 13:39 Examination: Doppler venous ultrasound of the lower extremity Comparison: None Technique: Grayscale evaluation with compression, spectral flow, and color Doppler assessment of the deep venous system of the leg, from the groin to the knee, as well as the lower leg Findings: The external iliac, common femoral, femoral, popliteal, and posterior tibial veins demonstrate normal compressibility and blood flow. Limited visualization of the calf vessels due to edema. Impression: No evidence for DVT of the right lower extremity Electronically signed by Tashi Madden 09-10-2025 6:[address] 09/10/25 17:45 CT RIGHT KNEE WITHOUT CONTRAST: HISTORY: Right knee radiographs from the same day. TECHNIQUE: CT of the right knee was obtained without intravenous contrast. Coronal and sagittal reformats were created. COMPARISON: FINDINGS: Acute traumatic comminuted fracture of the tibial plateau involving both the medial and the lateral articular surfaces. There is moderate impaction and depression in the medial tibial plateau. Moderate joint fluid IMPRESSION: Acute traumatic comminuted tibial plateau fractures as above. Electronically signed by Dilshad Bauer 09-10-2025 6:54 PM Discharge Plan Visit Data Chief Complaint: Leg Weakness, Bilateral Stated Complaint: Difficulty ambulating ED Provider: Erick Aldana ED Midlevel Provider: Sofia Oneill Discharge Problem: Closed fracture of right tibial plateau Patient Disposition: Admitted As Inpatient Condition: Fair Discharge Instructions Interventions: ED Discharge Assessment Last Done: 09/10/25 22:54 Discharge Problem: Closed fracture of right tibial plateau Qualifiers: Encounter type: initial encounter Qualified Code(s): S82.141A - Displaced bicondylar fracture of right tibia, initial encounter for closed fracture
[2025-09-10] MEDS: ACETAMINOPHEN 1,000 MG/100 ML VIAL IV STA (13:49)
[2025-09-10 13:53] LABS: Hematocrit (blood only) 34.9 % (37.0-47.0); Hemoglobin 11.3 g/dL (12.0-16.0); Immature Granulocytes # (auto) 0.10 K/uL (0.01-0.20); Immature Granulocytes % (auto) 0.8 %; Mean Corpuscular Hemoglobin 28.4 pg (25.0-34.0); Mean Corpuscular Volume 87.7 fL (80.0-100.0); Platelet Count 272 K/uL (130-400); RDW Standard Deviation 42.5 fL (36.4-46.3); Red Blood Count 3.98 M/uL (4.20-5.40); White Blood Count 12.37 K/ul (4.8-10.8)
[2025-09-10 14:14] LABS: Anion Gap 9.0 (3-11); Blood Urea Nitrogen 19.0 mg/dl (6-23); Calcium 9.1 mg/dl (8.6-10.3); Carbon Dioxide 22.0 mmol/L (21-32); Chloride 101.0 mmol/L (98-107); Creatinine Clr Calc Pharmacy 48.7 ml/min; Glucose 130.0 mg/dl (70-99(Fasting)); Potassium 4.0 mmol/L (3.5-5.1); Sodium 132.0 mmol/L (136-145)
[2025-09-10 14:23] LABS: INR 1.1 (0.9-1.1); Partial Thromboplastin Time 32 Seconds (21-31); Prothrombin Time 11.3 Seconds (9.0-12.0)
--- NOTE | 2025-09-10 15:49 | XRay Report ---
EXAM: Radiographs of the Right Knee 3 Views INDICATION: Posttraumatic pain TECHNIQUE: Three views of the right knee. COMPARISON: No relevant prior studies available. FINDINGS: Bones/joints: There is an acute fracture of the midline and medial tibial plateau. There is approximate 5 mm depression of the medial plateau. No dislocation. Soft tissues: Periarticular soft tissue swelling noted. IMPRESSION: Acute comminuted midline and medial tibial plateau fracture. ACT 112: N/A Electronically signed by Lacey Steinberg 09-10-2025 3:48 PM
--- NOTE | 2025-09-10 18:17 | Ultrasound Report ---
Examination: Doppler venous ultrasound of the lower extremity Comparison: None Technique: Grayscale evaluation with compression, spectral flow, and color Doppler assessment of the deep venous system of the leg, from the groin to the knee, as well as the lower leg Findings: The external iliac, common femoral, femoral, popliteal, and posterior tibial veins demonstrate normal compressibility and blood flow. Limited visualization of the calf vessels due to edema. Impression: No evidence for DVT of the right lower extremity Electronically signed by Tashi Madden 09-10-2025 6:17 PM
--- NOTE | 2025-09-10 18:55 | CT Scan Report ---
CT RIGHT KNEE WITHOUT CONTRAST: HISTORY: Right knee radiographs from the same day. TECHNIQUE: CT of the right knee was obtained without intravenous contrast. Coronal and sagittal reformats were created. COMPARISON: FINDINGS: Acute traumatic comminuted fracture of the tibial plateau involving both the medial and the lateral articular surfaces. There is moderate impaction and depression in the medial tibial plateau. Moderate joint fluid IMPRESSION: Acute traumatic comminuted tibial plateau fractures as above. Electronically signed by Dilshad Bauer 09-10-2025 6:54 PM
--- NOTE | 2025-09-10 21:20 | History & Physical Report ---
Date of Service September 10, 2025 Assessment & Plan (1) Closed fracture of right tibial plateau: (2) Malignant neoplasm of lower-inner quadrant of left breast in female, estrogen receptor positive: (3) History of tibial fracture: Plan The patient is an 80-year-old female with past medical history including bilateral lower extremity edema, urinary tract infection, chronic venous insufficiency, malignant neoplasm of anus, history of left tibial fracture, peripheral neuropathy, sarcoidosis, osteoporosis, chronic reflux esophagitis, arthritis, and abnormal gait. She reports that she fell 8 days ago, and injured her right knee. She was seen by her PCP on 09/04/2025. She reports the injury happened when she was bending over to feed her cat, and her feet slipped on the floor, and she fell. She did not hit her head. Her only complaint is a right knee pain and swelling, which has been steadily improving, until few days ago was started to get worse, and then overnight became severe which she presented to the ED for assessment. In the ED she underwent x-ray of right knee and CT right knee which showed an acute comminuted midline medial tibial plateau fracture. Closed acute comminuted midline/medial tibial plateau fracture- N.p.o. after midnight except medications Acetaminophen 650 mg by mouth every 6 hours as needed for mild pain or fever Morphine sulfate 2 mg IV every 3 hours as needed for moderate pain Morphine sulfate 4 mg IV every 3 hours as needed for severe pain Narcan IV per protocol LR at 80 mL/h x 1 L Orthopedic surgery has been contacted by emergency department physician History of left tibial plateau fracture 2021- Patient reports left leg is shorter than the right, and periodically has knee pain and/or sacroiliac pain. Breast cancer history- Continue tamoxifen Diarrhea- Patient reports that she has explosive diarrhea if she does not take Colestid 8 tablets in the morning and 4 tablets in the evening along with antidiarrheal medications. Hypertension/CHF- Hold amiloride, furosemide, lisinopril. Hydralazine 10 mg IV every 4 hours. Systolic blood pressure greater than 160 Peripheral neuropathy- Continue gabapentin postsurgery GERD- Hold oral famotidine Pantoprazole 40 mg IV daily History of Present Illness Primary Care Provider: KARI Davies The patient is an 80-year-old female with past medical history including bilateral lower extremity edema, urinary tract infection, chronic venous insufficiency, malignant neoplasm of anus, history of left tibial fracture, peripheral neuropathy, sarcoidosis, osteoporosis, chronic reflux esophagitis, arthritis, and abnormal gait. She reports that she fell 8 days ago, and injured her right knee. She was seen by her PCP on 09/04/2025. She reports the injury happened when she was bending over to feed her cat, and her feet slipped on the floor, and she fell. She did not hit her head. Her only complaint is a right knee pain and swelling, which has been steadily improving, until few days ago was started to get worse, and then overnight became severe which she presented to the ED for assessment. In the ED she underwent x-ray of right knee and CT right knee which showed an acute comminuted midline medial tibial plateau fracture. Allergies Allergy/AdvReac Type Severity Reaction Status Date / Time succinylcholine Allergy Severe DIFFICULTY Verified 09/05/25 13:19 REVERSING MEDICATION AFTER PROCEDURE nickel Allergy Intermediate ITCHY RASH Verified 09/05/25 13:19 ragweed pollen Allergy Intermediate sneezing/watery Verified 09/05/25 13:19 eyes Home Medications Medication Instructions Recorded Confirmed Type Lactobacillus acidophilus 1 cap PO BID 11/18/18 09/10/25 History (Acidophilus capsule) loratadine 10 mg tablet (Claritin) 10 mg PO DAILY PRN Allergy Symptoms 11/18/18 09/10/25 History amoxicillin 500 mg capsule 2,000 mg PO UD PRN prior to dental 10/07/19 09/10/25 History procedure cholecalciferol (vitamin D3) 125 5,000 unit PO BID 12/23/21 09/10/25 History mcg (5,000 unit) tablet (Vitamin D3) diphenoxylate-atropine 2.5 1 tab PO QID PRN Diarrhea 12/23/21 09/10/25 History mg-0.025 mg tablet (Lomotil) ferrous sulfate 325 mg (65 mg 325 mg PO DAILY PRN ANEMIA #30 tabs 12/23/21 09/10/25 Rx iron) tablet (Feosol) loperamide 2 mg capsule 2 mg PO QID 12/23/21 09/10/25 History (Anti-Diarrheal (loperamide)) mupirocin 2 % topical ointment 1 applic topical BID PRN Dry Nasal 12/23/21 09/10/25 History Passages lisinopril 5 mg tablet 10 mg PO QAM 03/19/22 09/10/25 History colestipol 1 gram tablet See Rx Instructions PO DAILY 08/22/22 09/10/25 History tamoxifen 20 mg tablet 20 mg PO QAM 02/19/23 09/10/25 History zoledronic acid 5 mg/100 mL in 1 ea IV YEARLY 02/19/23 09/10/25 History mannitol 5 %-water intravenous piggybck (Reclast) amiloride 5 mg tablet 5 mg PO QAM 05/01/23 09/10/25 History famotidine 20 mg tablet 20 mg PO BID 05/01/23 09/10/25 History gncmteky-iia-krhgpo 5 mg-zeaxanth 1 cap PO DAILY 05/01/23 09/10/25 History 1 mg-bilberry 7.5 mg-herbal capsule (Macular Health Formula) Lift Chair #1 ea 03/24/24 09/10/25 Rx econazole nitrate 1 % topical cream 1 applic topical BID PRN rash #15 09/21/24 09/10/25 Rx grams gabapentin 600 mg tablet 600 mg PO BID 02/24/25 09/10/25 History magnesium chloride 64 mg 64 mg PO DAILY 04/18/25 09/10/25 History tablet,extended release vitamin B complex 1 tab PO QAM 04/18/25 09/10/25 History furosemide 40 mg tablet 40 mg PO DAILY PRN edema #90 tabs 04/26/25 09/10/25 Rx fluticasone propionate 50 2 spray intranasal QAM #48 grams 08/14/25 09/10/25 Rx mcg/actuation nasal spray,suspension (Flonase Allergy Relief) Past Med/Surg History Problem List (Updated 09/10/25 @ 21:59 by Sofia Oneill PA-C) Closed fracture of right tibial plateau (Acute) Urinary frequency with urgency Fall (Acute) Right knee pain Bilateral lower extremity edema Nausea & vomiting Abdominal cramping UTI (urinary tract infection), uncomplicated Chronic venous insufficiency Mild peripheral edema Decreased hearing of right ear History of malignant neoplasm of anus Wears hearing aid in both ears Resound RE762 disp 2019 History of tibial fracture (~06/17/22) Fracture of left tibial plateau Pes anserine bursitis Malignant neoplasm of lower-inner quadrant of left breast in female, estrogen receptor positive (Chronic) Enlarged thyroid gland Iron deficiency anemia Uses hearing aid (Acute) Peripheral neuropathy (Chronic) Hypomagnesemia (Chronic) Hypertension Bilateral tinnitus Sensorineural hearing loss (SNHL) of both ears Mil sloping to sev SNHL AU Menopause (Acute) Encounter for cosmetic procedure Sarcoidosis (Chronic) Osteoporosis (Chronic) Hearing loss (Acute) Early satiety (Acute) Chronic reflux esophagitis (Chronic) Arthritis (Acute) Acquired deformity of foot (Acute) Abnormal gait (Chronic) Medical History 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 Osteoarthritis Degenerative disc disease Cancer of anal sphincter Neuropathy Sarcoidosis of lung Surgical History Status post right breast lumpectomy H/O right breast biopsy History of facelift History of lung surgery History of open reduction and internal fixation (ORIF) procedure History of total left hip replacement History of bilateral tubal ligation History of colonoscopy History of esophagogastroduodenoscopy (EGD) History of colostomy reversal History of colostomy History of total mastectomy of left breast History of left breast biopsy History of wisdom tooth extraction History of tooth extraction History of root canal procedure History of tonsillectomy and adenoidectomy Family History Unknown Diabetes Cancer Other No family history of adverse response to anesthesia Denies family history of Ovarian cancer Prostate cancer Myocardial infarction Breast cancer Colorectal cancer Social History Smoking Status: Never smoker Tobacco Type: Declines Second Hand Exposure: No; Do You Dip or Chew Tobacco: No; Tobacco Cessation Education Requested by Patient: No Hx Alcohol Use: Yes Alcohol type: hard liquor Alcohol type Comment: Rum Alcohol Intake Frequency: 4 or More x per/Week Alcohol Intake Frequency Comment: 1 glass per day Hx Substance Use: No Preferred Language: Kazakh Communication Ability: Effective Visual Impairment: Limited Hearing Ability: Use of Hearing Aid 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 Required: No Beliefs That Will Affect Care: None marital status: / Current Living Situation: Alone current occupational status: retired How many Children do You have: 1 Other Information That Helps Us Care for You: No Feels Safe at Home: Yes Safety Concerns: Feels Safe At This Time Childhood Exposure to Second-Hand Smoke: Yes Diet: regular caffeine: Yes (1 cup of coffee) during the past year weight has: decreased > 10 lbs Dental Care, Regularly: Yes Physical Activity Frequency: Daily Seatbelt Use: always Sunscreen Use: Yes Do you think of yourself as: straight/heterosexual Sexual Activity: has been sexually active, but not for at least 12 months Gender Identity: Female Assistive Devices: Walker Review of Systems Review of Systems: The patient denies chest pain, palpitations, shortness of breath, dyspnea on exertion, cough, sore throat, fevers, chills, sweats, weight change, fatigue, nausea, vomiting, diarrhea , constipation, abdominal pain, pelvic pain, blood in urine or stool, dysuria, urinary frequency or urgency, lightheadedness, dizziness, headache, memory loss, loss of consciousness, rash, abnormal bruising or bleeding, focal or generalized weakness, numbness or tingling in arms, generalized arthralgias or myalgias, back or neck pain, or night sweats. The review of systems is otherwise negative other than for that already noted above, and at least 10 systems have been reviewed. Physical Exam Physical Exam: The patient is awake, alert and oriented 3, well developed and well nourished, normocephalic and atraumatic, lying in bed and in no acute distress. HEENT--PERRL, EOMI, mucous membranes and oropharynx dry. Neck--supple. No JVD. No bruits. Thyroid normal, trachea midline, no adenopathy. Heart--normal S1 and S2. No murmurs, rubs or gallops. Lungs--clear bilaterally, no respiratory distress, no accessory muscle use. Abdomen--normal bowel sounds and soft. Nontender. Nondistended, no hernias or masses, no organomegaly. Extremities--no cyanosis or clubbing. No edema. There are good distal pulses b/l. Dermatologic--normal skin turgor, normal color, no abnormal lymph nodes, no rash. Neurologic--cranial nerves II through XII grossly intact. Rheumatologic--limited exam due to severe right knee and leg pain Psychiatric--normal affect. Results & Data Results & Data Vital Signs (Past 12 Hours) Vital Signs Temp Pulse Pulse Resp BP BP Pulse Ox 09/10/25 20:00 103 H 21 150/108 H 09/10/25 19:00 94 H 20 138/79 09/10/25 18:01 90 20 144/76 H 94 09/10/25 17:32 90 09/10/25 15:14 83 18 123/70 94 09/10/25 14:45 88 16 130/81 97 09/10/25 13:31 92 H 09/10/25 13:00 36.7 C 94 H 18 137/87 93 09/10/25 12:45 89 18 150/69 H 93 O2 Del Method 09/10/25 20:00 09/10/25 19:00 09/10/25 18:01 Room Air 09/10/25 17:32 09/10/25 15:14 Room Air 09/10/25 14:45 Room Air 09/10/25 13:31 09/10/25 13:00 Room Air 09/10/25 12:45 Room Air Laboratory Results Laboratory Results WBC 12.37 K/ul (4.8-10.8) H 09/10/25 13:07 RBC 3.98 M/uL (4.20-5.40) L 09/10/25 13:07 Hgb 11.3 g/dL (12.0-16.0) L 09/10/25 13:07 Hct 34.9 % (37.0-47.0) L 09/10/25 13:07 MCV 87.7 fL (80.0-100.0) 09/10/25 13:07 MCH 28.4 pg (25.0-34.0) 09/10/25 13:07 MCHC 32.4 g/dL (32.0-36.0) 09/10/25 13:07 RDW Std Deviation 42.5 fL (36.4-46.3) 09/10/25 13:07 RDW Coeff of Lakhwinder 13.3 % (11.5-14.5) 09/10/25 13:07 Plt Count 272 K/uL (130-400) 09/10/25 13:07 MPV 10.9 fL (9.4-12.4) 09/10/25 13:07 Immature Gran % (Auto) 0.8 % 09/10/25 13:07 Neut % (Auto) 86.2 % 09/10/25 13:07 Lymph % (Auto) 5.0 % 09/10/25 13:07 Parker % (Auto) 7.4 % 09/10/25 13:07 Eos % (Auto) 0.2 % 09/10/25 13:07 Baso % (Auto) 0.4 % 09/10/25 13:07 Neut # (Auto) 10.67 K/uL (1.40-6.50) H 09/10/25 13:07 Lymph # (Auto) 0.62 K/uL (1.20-3.40) L 09/10/25 13:07 Parker # (Auto) 0.91 K/uL (0.11-0.59) H 09/10/25 13:07 Eos # (Auto) 0.02 K/uL (0.00-0.50) 09/10/25 13:07 Baso # (Auto) 0.05 K/uL (0.00-0.20) 09/10/25 13:07 Immature Gran # (Auto) 0.10 K/uL (0.01-0.20) 09/10/25 13:07 PT 11.3 Seconds (9.0-12.0) 09/10/25 13:07 INR 1.1 (0.9-1.1) 09/10/25 13:07 APTT 32 Seconds (21-31) H 09/10/25 13:07 PTT Ratio 1.2 09/10/25 13:07 Sodium 132 mmol/L (136-145) L 09/10/25 13:07 Potassium 4.0 mmol/L (3.5-5.1) 09/10/25 13:07 Chloride 101 mmol/L (98-107) 09/10/25 13:07 Carbon Dioxide 22 mmol/L (21-32) 09/10/25 13:07 Anion Gap 9 (3-11) 09/10/25 13:07 BUN 19 mg/dl (6-23) 09/10/25 13:07 Creatinine 0.93 mg/dl (0.6-1.2) 09/10/25 13:07 Est Cr Clr Drug Dosing 48.7 ml/min 09/10/25 13:07 eGFR 62.13 09/10/25 13:07 BUN/Creatinine Ratio 20.4 (10-20) H 09/10/25 13:07 Glucose 130 mg/dl (70-99(Fasting)) H 09/10/25 13:07 Calcium 9.1 mg/dl (8.6-10.3) 09/10/25 13:07 Impressions Knee X-Ray 09/10/25 13:39 EXAM: Radiographs of the Right Knee 3 Views INDICATION: Posttraumatic pain TECHNIQUE: Three views of the right knee. COMPARISON: No relevant prior studies available. FINDINGS: Bones/joints: There is an acute fracture of the midline and medial tibial plateau. There is approximate 5 mm depression of the medial plateau. No dislocation. Soft tissues: Periarticular soft tissue swelling noted. IMPRESSION: Acute comminuted midline and medial tibial plateau fracture. ACT 112: N/A Electronically signed by Lacey Steinberg 09-10-2025 3:48 PM Venous Doppler Study 09/10/25 13:39 Examination: Doppler venous ultrasound of the lower extremity Comparison: None Technique: Grayscale evaluation with compression, spectral flow, and color Doppler assessment of the deep venous system of the leg, from the groin to the knee, as well as the lower leg Findings: The external iliac, common femoral, femoral, popliteal, and posterior tibial veins demonstrate normal compressibility and blood flow. Limited visualization of the calf vessels due to edema. Impression: No evidence for DVT of the right lower extremity Electronically signed by Tashi Madden 09-10-2025 6:[address] 09/10/25 17:45 CT RIGHT KNEE WITHOUT CONTRAST: HISTORY: Right knee radiographs from the same day. TECHNIQUE: CT of the right knee was obtained without intravenous contrast. Coronal and sagittal reformats were created. COMPARISON: FINDINGS: Acute traumatic comminuted fracture of the tibial plateau involving both the medial and the lateral articular surfaces. There is moderate impaction and depression in the medial tibial plateau. Moderate joint fluid IMPRESSION: Acute traumatic comminuted tibial plateau fractures as above. Electronically signed by Dilshad Bauer 09-10-2025 6:54 PM Code Status & VTE Plan Code Status Full code VTE Prophylaxis Plan VTE Prophylaxis will be ordered: Yes PG Care Time/CCT Total # of Minutes Spent Total Time Spent with Patient: Total time spent is greater than 50% in coordination of care (as documented) at patient's floor/unit and/or counseling patient: Coding Level of Care Code 62739 INT INP/OBS CARE MIN Diagnoses Closed fracture of right tibial plateau S82.141A Encounter type: initial encounter Malignant neoplasm of lower-inner quadrant of left breast in female, estrogen receptor positive C50.312; Z17.0 History of tibial fracture Z87.81 (1) Closed fracture of right tibial plateau Encounter type: initial encounter Qualified Code(s): S82.141A - Displaced bicondylar fracture of right tibia, initial encounter for closed fracture
[2025-09-10] MEDS: LACTATED RINGER'S 1,000 ML IV SCH (22:37)
[2025-09-10] MEDS ORDERED: NALOXONE HCL 0.4 MG/1 ML VIAL/CARP IV PRN (23:17)
[2025-09-10] MEDS ORDERED: MoRPHine SULFATE 2 MG/ML CARP IV PRN (23:17)
[2025-09-10] MEDS ORDERED: DIPHENOXYLATE/ATROPINE 2.5/0.025MG TAB PO PRN (23:17)
[2025-09-10] MEDS ORDERED: MoRPHine SULFATE 4 MG/ML 1 ML CARP\\VIAL IV PRN (23:17)
[2025-09-10] MEDS ORDERED: ONDANSETRON INJ 2 MG/ML 2 ML VIAL IV PRN (23:17)
[2025-09-11] MEDS: ACETAMINOPHEN 325 MG TAB PO PRN (05:30)
--- NOTE | 2025-09-11 09:03 | Orthopedic Consultation ---
Date of Consultation September 11, 2025 Assessment & Plan (1) Closed fracture of right tibial plateau: Impression: Right medial tibial plateau fracture, comminuted, depressed ~20 mm, closed PLAN: TANI ARIAS Continue with the knee immobilizer. Options include allowing the fracture to heal and then perform TKA versus TKA; would not recommend ORIF as it would likely fall apart, and would still likely end up with needing a TKA at some point. Patient would like to have the knee replacement as soon as possible; explained that with the amount of depression that she has it will require special implants to make up for the depression, and would recommend this being done at a trauma center. Will need to coordinate, she may need to go to a SNF versus transfer to a trauma center, but that would depend on implant and OR availability. Recommended obtaining her AFO from home. Also recommend neurology consult. She may eat. Pain control and DVT prophylaxis per primary service. Continue care per hospitalist service. History of Present Illness Reason for Consultation: Right medial tibial plateau fracture Requesting Physician: Marla Cobb MD Attending Physician: Niki Minor MD History of Present Illness Josefa is a pleasant 80-year-old female, who fell approximately 8 days ago inj uring her right knee. She went to see her PCP and as she was still able to ambulate, did not feel that it was serious. She progressively had worsening pain and came to the emergency department last evening, where x-rays & CT scan were obtained. I was consulted for further evaluation and treatment after she was admitted to the hospitalist service. Allergies Allergy/AdvReac Type Severity Reaction Status Date / Time succinylcholine Allergy Severe DIFFICULTY Verified 09/05/25 13:19 REVERSING MEDICATION AFTER PROCEDURE nickel Allergy Intermediate ITCHY RASH Verified 09/05/25 13:19 ragweed pollen Allergy Intermediate sneezing/watery Verified 09/05/25 13:19 eyes Home Medications Medication Instructions Recorded Confirmed Type Lactobacillus acidophilus 1 cap PO BID 11/18/18 09/10/25 History (Acidophilus capsule) loratadine 10 mg tablet (Claritin) 10 mg PO DAILY PRN Allergy Symptoms 11/18/18 09/10/25 History amoxicillin 500 mg capsule 2,000 mg PO UD PRN prior to dental 10/07/19 09/10/25 History procedure cholecalciferol (vitamin D3) 125 5,000 unit PO BID 12/23/21 09/10/25 History mcg (5,000 unit) tablet (Vitamin D3) diphenoxylate-atropine 2.5 1 tab PO QID PRN Diarrhea 12/23/21 09/10/25 History mg-0.025 mg tablet (Lomotil) ferrous sulfate 325 mg (65 mg 325 mg PO DAILY PRN ANEMIA #30 tabs 12/23/21 09/10/25 Rx iron) tablet (Feosol) loperamide 2 mg capsule 2 mg PO QID 12/23/21 09/10/25 History (Anti-Diarrheal (loperamide)) mupirocin 2 % topical ointment 1 applic topical BID PRN Dry Nasal 12/23/21 09/10/25 History Passages lisinopril 5 mg tablet 10 mg PO QAM 03/19/22 09/10/25 History colestipol 1 gram tablet See Rx Instructions PO DAILY 08/22/22 09/10/25 History tamoxifen 20 mg tablet 20 mg PO QAM 02/19/23 09/10/25 History zoledronic acid 5 mg/100 mL in 1 ea IV YEARLY 02/19/23 09/10/25 History mannitol 5 %-water intravenous piggybck (Reclast) amiloride 5 mg tablet 5 mg PO QAM 05/01/23 09/10/25 History famotidine 20 mg tablet 20 mg PO BID 05/01/23 09/10/25 History qjxdvtie-hrz-sssenn 5 mg-zeaxanth 1 cap PO DAILY 05/01/23 09/10/25 History 1 mg-bilberry 7.5 mg-herbal capsule (Macular Health Formula) Lift Chair #1 ea 03/24/24 09/10/25 Rx econazole nitrate 1 % topical cream 1 applic topical BID PRN rash #15 09/21/24 09/10/25 Rx grams gabapentin 600 mg tablet 600 mg PO BID 02/24/25 09/10/25 History magnesium chloride 64 mg 64 mg PO DAILY 04/18/25 09/10/25 History tablet,extended release vitamin B complex 1 tab PO QAM 04/18/25 09/10/25 History furosemide 40 mg tablet 40 mg PO DAILY PRN edema #90 tabs 04/26/25 09/10/25 Rx fluticasone propionate 50 2 spray intranasal QAM #48 grams 08/14/25 09/10/25 Rx mcg/actuation nasal spray,suspension (Flonase Allergy Relief) Patient History Medical History 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 Osteoarthritis Degenerative disc disease Cancer of anal sphincter Neuropathy Sarcoidosis of lung Surgical History Status post right breast lumpectomy H/O right breast biopsy History of facelift History of lung surgery History of open reduction and internal fixation (ORIF) procedure History of total left hip replacement History of bilateral tubal ligation History of colonoscopy History of esophagogastroduodenoscopy (EGD) History of colostomy reversal History of colostomy History of total mastectomy of left breast History of left breast biopsy History of wisdom tooth extraction History of tooth extraction History of root canal procedure History of tonsillectomy and adenoidectomy Family History Unknown Diabetes Cancer Other No family history of adverse response to anesthesia Denies family history of Ovarian cancer Prostate cancer Myocardial infarction Breast cancer Colorectal cancer Social History Smoking Status: Never smoker Tobacco Type: Declines Second Hand Exposure: No; Do You Dip or Chew Tobacco: No; Tobacco Cessation Education Requested by Patient: No Hx Alcohol Use: Yes Alcohol type: hard liquor Alcohol type Comment: Rum Alcohol Intake Frequency: 4 or More x per/Week Alcohol Intake Frequency Comment: 1 glass per day Hx Substance Use: No Preferred Language: Panamanian Communication Ability: Effective Visual Impairment: Limited Hearing Ability: Use of Hearing Aid Cement Breaker Required: No Beliefs That Will Affect Care: None marital status: / Current Living Situation: Alone current occupational status: retired How many Children do You have: 1 Other Information That Helps Us Care for You: No Feels Safe at Home: Yes Safety Concerns: Feels Safe At This Time Childhood Exposure to Second-Hand Smoke: Yes Diet: regular caffeine: Yes (1 cup of coffee) during the past year weight has: decreased > 10 lbs Dental Care, Regularly: Yes Physical Activity Frequency: Daily Seatbelt Use: always Sunscreen Use: Yes Do you think of yourself as: straight/heterosexual Sexual Activity: has been sexually active, but not for at least 12 months Gender Identity: Female Assistive Devices: Walker Physical Exam Physical Exam: RLE: Diminished sensation to light touch, patient notes she has neuropathy, unchanged. BCR <3 seconds. She has a foot drop, patient notes that it has been that way for 2 to 3 years. She is able to do a straight leg raise. + TTP medial joint line. ROM 575 degrees. Varus and valgus stress at 5 & 30 degrees is stable. Results & Data Vital Signs (Past 12 Hours) Vital Signs Temp Pulse Pulse Resp BP BP Pulse Ox 09/11/25 06:57 36.8 C 91 H 18 149/67 H 94 09/10/25 23:02 37.2 C 97 H 20 131/72 93 09/10/25 23:02 37.2 C 97 H 20 131/72 93 09/10/25 22:00 86 24 115/60 92 09/10/25 21:28 85 09/10/25 21:00 96 H 20 132/95 O2 Del Method 09/11/25 06:57 Room Air 09/10/25 23:02 Room Air 09/10/25 23:02 Room Air 09/10/25 22:00 Room Air 09/10/25 21:28 09/10/25 21:00 Laboratory Results Laboratory Results WBC 12.37 K/ul (4.8-10.8) H 09/10/25 13:07 RBC 3.98 M/uL (4.20-5.40) L 09/10/25 13:07 Hgb 11.3 g/dL (12.0-16.0) L 09/10/25 13:07 Hct 34.9 % (37.0-47.0) L 09/10/25 13:07 MCV 87.7 fL (80.0-100.0) 09/10/25 13:07 MCH 28.4 pg (25.0-34.0) 09/10/25 13:07 MCHC 32.4 g/dL (32.0-36.0) 09/10/25 13:07 RDW Std Deviation 42.5 fL (36.4-46.3) 09/10/25 13:07 RDW Coeff of Lakhwinder 13.3 % (11.5-14.5) 09/10/25 13:07 Plt Count 272 K/uL (130-400) 09/10/25 13:07 MPV 10.9 fL (9.4-12.4) 09/10/25 13:07 Immature Gran % (Auto) 0.8 % 09/10/25 13:07 Neut % (Auto) 86.2 % 09/10/25 13:07 Lymph % (Auto) 5.0 % 09/10/25 13:07 [place] % (Auto) 7.4 % 09/10/25 13:07 Eos % (Auto) 0.2 % 09/10/25 13:07 Baso % (Auto) 0.4 % 09/10/25 13:07 Neut # (Auto) 10.67 K/uL (1.40-6.50) H 09/10/25 13:07 Lymph # (Auto) 0.62 K/uL (1.20-3.40) L 09/10/25 13:07 [place] # (Auto) 0.91 K/uL (0.11-0.59) H 09/10/25 13:07 Eos # (Auto) 0.02 K/uL (0.00-0.50) 09/10/25 13:07 Baso # (Auto) 0.05 K/uL (0.00-0.20) 09/10/25 13:07 Immature Gran # (Auto) 0.10 K/uL (0.01-0.20) 09/10/25 13:07 PT 11.3 Seconds (9.0-12.0) 09/10/25 13:07 INR 1.1 (0.9-1.1) 09/10/25 13:07 APTT 32 Seconds (21-31) H 09/10/25 13:07 PTT Ratio 1.2 09/10/25 13:07 Sodium 132 mmol/L (136-145) L 09/10/25 13:07 Potassium 4.0 mmol/L (3.5-5.1) 09/10/25 13:07 Chloride 101 mmol/L (98-107) 09/10/25 13:07 Carbon Dioxide 22 mmol/L (21-32) 09/10/25 13:07 Anion Gap 9 (3-11) 09/10/25 13:07 BUN 19 mg/dl (6-23) 09/10/25 13:07 Creatinine 0.93 mg/dl (0.6-1.2) 09/10/25 13:07 Est Cr Clr Drug Dosing 48.7 ml/min 09/10/25 13:07 eGFR 62.13 09/10/25 13:07 BUN/Creatinine Ratio 20.4 (10-20) H 09/10/25 13:07 Glucose 130 mg/dl (70-99(Fasting)) H 09/10/25 13:07 Calcium 9.1 mg/dl (8.6-10.3) 09/10/25 13:07 Impressions Knee X-Ray 09/10/25 13:39 EXAM: Radiographs of the Right Knee 3 Views INDICATION: Posttraumatic pain TECHNIQUE: Three views of the right knee. COMPARISON: No relevant prior studies available. FINDINGS: Bones/joints: There is an acute fracture of the midline and medial tibial plateau. There is approximate 5 mm depression of the medial plateau. No dislocation. Soft tissues: Periarticular soft tissue swelling noted. IMPRESSION: Acute comminuted midline and medial tibial plateau fracture. ACT 112: N/A Electronically signed by Lacey Steinberg 09-10-2025 3:48 PM Venous Doppler Study 09/10/25 13:39 Examination: Doppler venous ultrasound of the lower extremity Comparison: None Technique: Grayscale evaluation with compression, spectral flow, and color Doppler assessment of the deep venous system of the leg, from the groin to the knee, as well as the lower leg Findings: The external iliac, common femoral, femoral, popliteal, and posterior tibial veins demonstrate normal compressibility and blood flow. Limited visualization of the calf vessels due to edema. Impression: No evidence for DVT of the right lower extremity Electronically signed by Tashi Madden 09-10-2025 6:[address] 09/10/25 17:45 CT RIGHT KNEE WITHOUT CONTRAST: HISTORY: Right knee radiographs from the same day. TECHNIQUE: CT of the right knee was obtained without intravenous contrast. Coronal and sagittal reformats were created. COMPARISON: FINDINGS: Acute traumatic comminuted fracture of the tibial plateau involving both the medial and the lateral articular surfaces. There is moderate impaction and depression in the medial tibial plateau. Moderate joint fluid IMPRESSION: Acute traumatic comminuted tibial plateau fractures as above. Electronically signed by Dilshad Bauer 09-10-2025 6:54 PM (1) Closed fracture of right tibial plateau Encounter type: initial encounter Qualified Code(s): S82.141A - Displaced bicondylar fracture of right tibia, initial encounter for closed fracture
[2025-09-11] MEDS: TAMOXIFEN CITRATE 10 MG TABLET PO SCH (09:17)
[2025-09-11] MEDS: PANTOprazole 40 MG/10 ML SYR IV SCH (09:17)
[2025-09-11] MEDS: FLUTICASONE PROPIONATE NA SPR 16 GM BTL NAE SCH (09:17)
[2025-09-11] MEDS: LOPERAMIDE HCL 2 MG CAP PO SCH (09:20)
[2025-09-11] MEDS: COLESTIPOL HCL 1 GM TAB PO SCH ×2 (10:43→22:37)
--- NOTE | 2025-09-11 15:51 | Hospitalist Progress Note ---
Date of Service September 11, 2025 Assessment & Plan (1) Closed fracture of right tibial plateau: (2) Malignant neoplasm of lower-inner quadrant of left breast in female, estrogen receptor positive: (3) History of tibial fracture: Plan 80-year-old woman who fell a week ago causing right knee injury, found to have tibial plateau fracture. Josefa has a complex/extensive medical history including remote anorectal cancer treated with surgery/chemo/XRT, breast cancer treated with andrews rgery/chemo/XRT, both of these appear to be in remission, neuropathy resultant of cancer treatments including the right foot drop ever since her treatment for anal rectal cancer, and pulmonary sarcoidosis. orthopedics was consulted by the ED and CT was obtained. Unfortunately this is a complex fracture. Her case was discussed with Ortho trauma at [facility] They recommended right TKA, unfortunately they do not have a surgeon available for right TKA for at least a week or week and a half. Dr. Cobb consulted I discussed the plan of care with him he has been in discussion with [facility] about Josefa's care. They are recommending ORIF and their trauma service is willing to see her as an outpatient this week. Plan at this point is to see whether she could transfer to [facility] facility near her she to make appointments and surgery easier to achieve. Mean she will remain with nonweightbearing in a knee immobilizer splint Pain control: change APAP to scheduled stop morphine and start oral oxycodone for moderate pain Morphine sulfate 4 mg IV every 3 hours as needed for severe pain Narcan IV per protocol bowel care, DVT ppx # R foot drop, peripheral neuropathy - I reviewed her previous chart notes extensively including heme/onc, primary care, and physical therapy notes. These symptoms are noted as far back as our accessible records go (2018) and are resultant of her previous treatment for anorectal cancer in the late . -continue gabapentin # History of left tibial plateau fracture 2021- Patient reports left leg is shorter than the right, and periodically has knee pain and/or sacroiliac pain. # Breast cancer history- Continue tamoxifen # Chronic Diarrhea- Patient reports that she has explosive diarrhea if she does not take Colestid 8 tablets in the morning and 4 tablets in the evening along with antidiarrheal medications. # Hypertension/CHF- Resume amiloride, furosemide, lisinopril. # GERD- resume famotidine Admission and Anticipated Discharge Date Admission Date: September 10, 2025 Subjective RLE pain - not any pain while immobile, wearing knee immobilizer splint no dyspnea or CP, no abd pain or n/v wants to have repair NGA Physical Exam Physical Exam: Last 24h vitals reviewed GEN: no acute distress, sitting in bed HEENT: pupils equal, sclerae anicteric, moist MM RESP: normal WOB, CTAB CV: reg no mrg ABD: soft/nt/nd +BT : no de la cruz SKIN: warm and dry, no generalized rashes EXT: RLE in knee immobilizer splint, R foot drop present chronic, also has chronic weakness of LLE dorsiflexion but not as bad. R foot wwp NEURO: AOx person, place, and situation. Face symmetric, speech normal, moves 4 ext spontaneously and equally Results & Data Results & Data Vital Signs (Past 12 Hours) Vital Signs Temp Pulse Resp BP Pulse Ox O2 Del Method 09/11/25 06:57 36.8 C 91 H 18 149/67 H 94 Room Air PG Care Time/CCT Total # of Minutes Spent Total Time Spent with Patient: I personally spent: 60 minutes today on clinical care activities including: reviewing chart notes and vital signs reviewing labs reviewing studies discussion with healthcare market consultant(s) discussion with child care supervisor examining and counseling the patient extensive chart review writing orders documentation Coding Level of Care Code 32867 SUB INP/OBS CARE 3/50MIN Diagnoses Closed fracture of right tibial plateau S82.141A Encounter type: initial encounter Malignant neoplasm of lower-inner quadrant of left breast in female, estrogen receptor positive C50.312; Z17.0 History of tibial fracture Z87.81 (1) Closed fracture of right tibial plateau Encounter type: initial encounter Qualified Code(s): S82.141A - Displaced bicondylar fracture of right tibia, initial encounter for closed fracture
[2025-09-11] MEDS ORDERED: MoRPHine SULFATE 2 MG/ML CARP IV PRN (15:54)
[2025-09-11] MEDS: ACETAMINOPHEN 325 MG TAB PO SCH (16:30)
[2025-09-11] MEDS: GABAPENTIN 600 MG TAB PO SCH (21:03)
[2025-09-11] MEDS: LORATADINE 10 MG TAB PO PRN (21:03)
[2025-09-11] MEDS: FAMOTIDINE 20 MG TAB PO SCH (21:03)
[2025-09-11] MEDS: CHOLECALCIFEROL 125 MCG (5,000 UNITS) TAB PO SCH (21:03)
[2025-09-12 07:02] LABS: Hematocrit (blood only) 32.0 % (37.0-47.0); Hemoglobin 10.3 g/dL (12.0-16.0); Mean Corpuscular Hemoglobin 28.2 pg (25.0-34.0); Mean Corpuscular Volume 87.7 fL (80.0-100.0); Platelet Count 284 K/uL (130-400); RDW Standard Deviation 42.7 fL (36.4-46.3); Red Blood Count 3.65 M/uL (4.20-5.40); White Blood Count 10.57 K/ul (4.8-10.8)
[2025-09-12 07:32] LABS: Anion Gap 7.0 (3-11); Blood Urea Nitrogen 10.0 mg/dl (6-23); Calcium 8.5 mg/dl (8.6-10.3); Carbon Dioxide 27.0 mmol/L (21-32); Chloride 105.0 mmol/L (98-107); Creatinine Clr Calc Pharmacy 55.5 ml/min; Glucose 107.0 mg/dl (70-99(Fasting)); Magnesium 1.1 mg/dl (1.7-2.4); Potassium 3.6 mmol/L (3.5-5.1); Sodium 139.0 mmol/L (136-145)
[2025-09-12] MEDS: aMILoride HCL 5 MG TAB PO SCH (08:20)
[2025-09-12] MEDS: MAGNESIUM CHLORIDE W/CALCIUM 64MG DELAYED REL TAB PO SCH (08:20)
[2025-09-12] MEDS: FUROSEMIDE 40 MG TAB PO PRN (08:21)
--- NOTE | 2025-09-12 08:47 | Hospitalist Progress Note ---
Date of Service September 12, 2025 Assessment & Plan (1) Closed fracture of right tibial plateau: (2) Malignant neoplasm of lower-inner quadrant of left breast in female, estrogen receptor positive: (3) History of tibial fracture: Plan 80-year-old woman who fell a week ago causing right knee injury, found to have tibial plateau fracture. Josefa has a complex/extensive medical history including remote anorectal cancer treated with surgery/chemo/XRT, breast cancer treated with andrews rgery/chemo/XRT, both of these appear to be in remission, neuropathy resultant of cancer treatments including the right foot drop ever since her treatment for anal rectal cancer, and pulmonary sarcoidosis. orthopedics was consulted by the ED and CT was obtained. Unfortunately this is a complex fracture. Her case was discussed with Ortho trauma at [facility] They recommended right TKA, unfortunately they do not have a surgeon available for right TKA for at least a week or week and a half. Dr. Cobb consulted I discussed the plan of care with him 09/11, 09/12. He has been in di scussion with [facility] ortho trauma service about Josefa's care. They are recommending ORIF and Dr. Rosenbaum with trauma service is willing to see her as an outpatient this week. Plan at this point is to see whether she could [facility] to [facility] her she to make appointments and surgery easier to achieve. Meanwhile she will remain with nonweightbearing in a knee immobilizer splint. PT/OT evaluations completed today. Discussed with case management. Patient aware of plan. Pain control: cont scheduled APAP and PRN oxycodone Morphine sulfate 4 mg IV every 3 hours as needed for severe pain Narcan IV per protocol bowel care, DVT ppx # severe chronic hypomagnesemia - on chronic oral supplement, continued. Mag 1.1 today. Ordered 4g IV. Recheck in AM. potassium normal. # R foot drop, peripheral neuropathy - I reviewed her previous chart notes extensively including heme/onc, primary care, and physical therapy notes. These symptoms are noted as far back as our accessible records go (2018) and are resultant of her previous treatment for anorectal cancer in the late . She confirms these are very longstanding issues -continue gabapentin # History of left tibial plateau fracture 2021- Patient reports left leg is shorter than the right, and periodically has knee pain and/or sacroiliac pain. # Breast cancer history- Continue tamoxifen # Chronic Diarrhea- Patient reports that she has explosive diarrhea if she does not take Colestid 8 tablets in the morning and 4 tablets in the evening along with antidiarrheal medications. Stable # Hypertension/CHF- stable. euvolemic Continue amiloride, furosemide, lisinopril. # GERD- cont famotidine DVT ppx - enoxaparin 40 mg sq daily Admission and Anticipated Discharge Date Admission Date: September 10, 2025 Subjective R knee area remains painful if she moves, but does not hurt at rest She has some chronic neck pain unchanged from baseline [place] and unchanged from her baseline wears hearing aids No chest or abdominal pain. No dyspnea. Eating well. Physical Exam Physical Exam: Tertiary Survey: Objective: All labs and imaging reports reviewed. Physical Exam: General: - Alert: Yes - Oriented: Yes - GCS 15: Yes HEENT: - No pain/tenderness. - No lacerations/abrasions - No numbness/tingling - PERLAA. Normal Visual Acuity. H man of hearing - at baseline. No facial asymmetry. - Mucous membranes moist. Neck: - Midline Tenderness: No - Cleared C-Spine: Yes Thorax: - Pain/Tenderness: None - Lacerations/Abrasions: None - Swelling/Ecchymosis: None - Air/Bony Crepitus: None Cardiopulmonary: - Regular Rate and Rhythm. No mur murs, rubs or gallops. - Breath sounds CTAB. No wheezes, rales, or rhonchi. - Symmetrical Chest Rise Abdomen - Pain/Tenderness: None - Lacerations/Abrasions: None - No abdominal distension - Abdominal rigidity/guarding: No ne - Bowel Sounds: Present, normal Back/Spine - Lacerations/Abrasions: None - Swelling/Ecchymosis: None - Pain/Tenderness: None - Step-offs: None Extremities: - RUE: No deformity. No laceratio ns/abrasions. No swelling/ecchymosis. No pain/tenderness. Full active and passive range of motion. - LUE: No deformity. No laceratio ns/abrasions. No swelling/ecchymosis. No pain/tenderness. Full active and passive range of motion. - LLE: No deformity. No laceratio ns/abrasions. No swelling/ecchymosis. No pain/tenderness. Full active and passive range of motion. - RLE: In knee immobilizer. Almaz ins TTP over right knee with decreased flexion/extension of knee. R foot WWP with 2+ DP pulse. Baseline foot drop unchanged. Mild R foot edema unchanged. Good cap refill Mental status Adequate for Full Exam: Yes C-Spine Cleared (Radiologically AND Clinically): Yes Results & Data Results & Data Vital Signs (Past 12 Hours) Vital Signs Temp Pulse Resp BP Pulse Ox O2 Del Method 09/12/25 08:28 136/72 09/12/25 08:08 36.3 C L 82 16 152/94 H 94 Room Air Laboratory Results Magnesium 1.1 BMP unremarkable PG Care Time/CCT Total # of Minutes Spent Total Time Spent with Patient: I personally spent: 55 minutes today on clinical care activities including: reviewing chart notes and vital signs reviewing labs reviewing studies discussion with hr shared services consultant(s) discussion with careers counsellor examining and counseling the patient writing orders documentation Coding Level of Care Code 26812 SUB INP/OBS CARE 3/50MIN Diagnoses Closed fracture of right tibial plateau S82.141A Encounter type: initial encounter Malignant neoplasm of lower-inner quadrant of left breast in female, estrogen receptor positive C50.312; Z17.0 History of tibial fracture Z87.81 (1) Closed fracture of right tibial plateau Encounter type: initial encounter Qualified Code(s): S82.141A - Displaced bicondylar fracture of right tibia, initial encounter for closed fracture
--- NOTE | 2025-09-12 10:12 | Orthopedic Progress Note ---
Date of Service September 12, 2025 Assessment & Plan (1) Closed fracture of right tibial plateau: Plan: Impression: Right medial tibial plateau fracture, comminuted, depressed ~20 mm, closed PLAN: NWB RLE, AFO brace on RLE when ambulatory RICE Continue with the knee immobilizer. Options include allowing the fracture to heal and then perform TKA vs ORIF vs acute TKA. Spoke with Joints service in [place] they do not recommend acute TKA may still need special implants due to the depression, if she were to go to need TKA; they recommend referral to Trauma service for ORIF. Spoke with Dr. Garcia, [place] [facility] and could see her as an outpatient 09/12-02/03 and discuss ORIF. Recommend this being done at a trauma center. Will need to coordinate, transfer to a SNF near [place] to allow for easy transport to [facility] and eventual surgery. Spoke with Jessica the CM and she will review chart and try to establish transfer to rehab facility in [facility] Neurology consult primary service found that this has been on-going for decades. She may eat. Pain control and DVT prophylaxis per primary service. Continue care per hospitalist service. Admission and Anticipated Discharge Date Admission Date: September 10, 2025 Supervising Physician Co-Signing Physician Notes I, Dr. Cobb, Saw and examined the patient and agree with the above findings and plan of care I developed and discussed with my PA. Subjective This 80-year-old female is seen today for follow-up of a comminuted depressed right tibial plateau fracture that she sustained after falling in her kitchen. Patient states that her pain is well-controlled presently. She is currently in a knee immobilizer. She states she has had difficulty getting up without the assistance of physical therapy because she is unable to put weight down her right lower extremity. She states that she did speak with Dr. Cobb yesterday and was advised that she may need to go to rehab somewhere near [place]. Currently she denies chest pain, shortness of breath, fever, chills, sweats, nausea, vomiting, diarrhea or difficulty voiding. She states that she has frequent loose stools due to sphincter muscle dysfunction. Review of Systems Review of Systems: All systems reviewed & are unremarkable except as noted in Subjective Physical Exam Physical Exam: Right lower extremity: Patient is unable to perform active straight leg raise test. She has chronic foot drop in the right lower extremity. She is able to actively flex her knee to about 40 degrees. She has an normal sensation to light touch over the pads of all digits due to neuropathy. Her peripheral pulses are 2+. She does have mild edema noted over the anterior aspect of the knee. Aniceto bandage was reapplied as well as the knee immobilizer. Results & Data Vital Signs (Past 12 Hours) Vital Signs Temp Pulse Resp BP Pulse Ox O2 Del Method 09/12/25 08:28 136/72 09/12/25 08:08 36.3 C L 82 16 152/94 H 94 Room Air Diagnostic Findings Laboratory Results WBC 10.57 K/ul (4.8-10.8) 09/12/25 06: RBC 3.65 M/uL (4.20-5.40) L 09/12/25 06:29 Hgb 10.3 g/dL (12.0-16.0) L 09/12/25 06: Hct 32.0 % (37.0-47.0) L 09/12/25 06: MCV 87.7 fL (80.0-100.0) 09/12/25 06:29 MCH 28.2 pg (25.0-34.0) 09/12/25 06: MCHC 32.2 g/dL (32.0-36.0) 09/12/25 06:29 RDW Std Deviation 42.7 fL (36.4-46.3) 09/12/25 06:29 RDW Coeff of Lakhwinder 13.2 % (11.5-14.5) 09/12/25 06:29 Plt Count 284 K/uL (130-400) 09/12/25 06:29 MPV 10.6 fL (9.4-12.4) 09/12/25 06:29 Immature Gran % (Auto) 0.8 % 09/10/25 13:07 Neut % (Auto) 86.2 % 09/10/25 13:07 Lymph % (Auto) 5.0 % 09/10/25 13:07 [place] % (Auto) 7.4 % 09/10/25 13:07 Eos % (Auto) 0.2 % 09/10/25 13:07 Baso % (Auto) 0.4 % 09/10/25 13:07 Neut # (Auto) 10.67 K/uL (1.40-6.50) H 09/10/25 13:07 Lymph # (Auto) 0.62 K/uL (1.20-3.40) L 09/10/25 13:07 [place] # (Auto) 0.91 K/uL (0.11-0.59) H 09/10/25 13:07 Eos # (Auto) 0.02 K/uL (0.00-0.50) 09/10/25 13:07 Baso # (Auto) 0.05 K/uL (0.00-0.20) 09/10/25 13:07 Immature Gran # (Auto) 0.10 K/uL (0.01-0.20) 09/10/25 13:07 PT 11.3 Seconds (9.0-12.0) 09/10/25 13:07 INR 1.1 (0.9-1.1) 09/10/25 13:07 APTT 32 Seconds (21-31) H 09/10/25 13:07 PTT Ratio 1.2 09/10/25 13:07 Sodium 139 mmol/L (136-145) 09/12/25 06:29 Potassium 3.6 mmol/L (3.5-5.1) 09/12/25 06:29 Chloride 105 mmol/L (98-107) 09/12/25 06:29 Carbon Dioxide 27 mmol/L (21-32) 09/12/25 06:29 Anion Gap 7 (3-11) 09/12/25 06:29 BUN 10 mg/dl (6-23) 09/12/25 06:29 Creatinine 0.77 mg/dl (0.6-1.2) 09/12/25 06:29 Est Cr Clr Drug Dosing 55.5 ml/min 09/12/25 06:29 eGFR 77.93 09/12/25 06:29 BUN/Creatinine Ratio 13.0 (10-20) 09/12/25 06:29 Glucose 107 mg/dl (70-99(Fasting)) H 09/12/25 06:29 Calcium 8.5 mg/dl (8.6-10.3) L 09/12/25 06:29 Magnesium 1.1 mg/dl (1.7-2.4) L 09/12/25 06:29 Impressions Knee X-Ray 09/10/25 13:39 EXAM: Radiographs of the Right Knee 3 Views INDICATION: Posttraumatic pain TECHNIQUE: Three views of the right knee. COMPARISON: No relevant prior studies available. FINDINGS: Bones/joints: There is an acute fracture of the midline and medial tibial plateau. There is approximate 5 mm depression of the medial plateau. No dislocation. Soft tissues: Periarticular soft tissue swelling noted. IMPRESSION: Acute comminuted midline and medial tibial plateau fracture. ACT 112: N/A Electronically signed by Lacey Steinberg 09-10-2025 3:48 PM Venous Doppler Study 09/10/25 13:39 Examination: Doppler venous ultrasound of the lower extremity Comparison: None Technique: Grayscale evaluation with compression, spectral flow, and color Doppler assessment of the deep venous system of the leg, from the groin to the knee, as well as the lower leg Findings: The external iliac, common femoral, femoral, popliteal, and posterior tibial veins demonstrate normal compressibility and blood flow. Limited visualization of the calf vessels due to edema. Impression: No evidence for DVT of the right lower extremity Electronically signed by Tashi Madden 09-10-2025 6:[address] 09/10/25 17:45 CT RIGHT KNEE WITHOUT CONTRAST: HISTORY: Right knee radiographs from the same day. TECHNIQUE: CT of the right knee was obtained without intravenous contrast. Coronal and sagittal reformats were created. COMPARISON: FINDINGS: Acute traumatic comminuted fracture of the tibial plateau involving both the medial and the lateral articular surfaces. There is moderate impaction and depression in the medial tibial plateau. Moderate joint fluid IMPRESSION: Acute traumatic comminuted tibial plateau fractures as above. Electronically signed by Dilshad Bauer 09-10-2025 6:54 PM (1) Closed fracture of right tibial plateau Encounter type: initial encounter Qualified Code(s): S82.141A - Displaced bicondylar fracture of right tibia, initial encounter for closed fracture
[2025-09-12] MEDS: MAGNESIUM SULFATE / D5W 1 GM/100 ML BAG IV SCH (14:30)
[2025-09-13 07:51] VITALS: BP 126/76; PULSE 56; RESP 20; TEMP 97.9; O2SAT 97
[2025-09-13 07:57] LABS: Anion Gap 6.0 (3-11); Blood Urea Nitrogen 16.0 mg/dl (6-23); Calcium 8.3 mg/dl (8.6-10.3); Carbon Dioxide 26.0 mmol/L (21-32); Chloride 105.0 mmol/L (98-107); Creatinine Clr Calc Pharmacy 49.7 ml/min; Glucose 112.0 mg/dl (70-99(Fasting)); Magnesium 1.9 mg/dl (1.7-2.4); Potassium 3.9 mmol/L (3.5-5.1); Sodium 137.0 mmol/L (136-145)
--- NOTE | 2025-09-13 08:29 | Hospitalist Progress Note ---
Date of Service September 13, 2025 Assessment & Plan (1) Closed fracture of right tibial plateau: (2) Malignant neoplasm of lower-inner quadrant of left breast in female, estrogen receptor positive: (3) History of tibial fracture: Plan 80-year-old woman who fell a week prior to admission causing right knee injury, found to have tibial plateau fracture. Josefa has a complex/extensive medical history including remote anorectal cancer treated with surgery/chemo/XRT, breast cancer treated with surgery/chemo/XRT, both of these appear to be in remission, neuropathy resultant of cancer treatments including the right foot drop ever since her treatment for anal rectal cancer, and pulmonary sarcoidosis. orthopedics was consulted by the ED and CT was obtained. Unfortunately this is a complex fracture. Her case was discussed with Ortho trauma at [facility] They recommended right TKA, unfortunately they do not have a surgeon available for right TKA for at least a week or week and a half. Dr. Cobb consulted I discussed the plan of care with him 09/11, 09/12. He has been in discussion with [facility] ortho trauma service about Josefa's care. They are recommending ORIF and Dr. Rosenbaum with trauma service is willing to see her as an outpatient this week. Plan at this point is to see whether she could transfer to [facility] facility near her she to make appointments and surgery easier to achieve. Meanwhile she will remain with nonweightbearing in a knee immo bilizer splint. PT/OT evaluations completed today. Discussed with case management. Patient aware of plan. Pain control: cont scheduled APAP and PRN oxycodone Morphine sulfate 4 mg IV every 3 hours as needed for severe pain Narcan IV per protocol bowel care, DVT ppx # severe chronic hypomagnesemia - on chronic oral supplement, continued. Mag 1.1 today. Ordered 4g IV. Recheck in AM. potassium normal. # R foot drop, peripheral neuropathy - I reviewed her previous chart notes extensively including heme/onc, primary care, and physical therapy notes. These symptoms are noted as far back as our accessible records go (2018) and are resultant of her previous treatment for anorectal cancer in the late . She confirms these are very longstanding issues -continue gabapentin # History of left tibial plateau fracture 2021- Patient reports left leg is shorter than the right, and periodically has knee pain and/or sacroiliac pain. # Breast cancer history- Continue tamoxifen # Chronic Diarrhea- Patient reports that she has explosive diarrhea if she does not take Colestid 8 tablets in the morning and 4 tablets in the evening along with antidiarrheal medications. Stable # Hypertension/CHF- stable. euvolemic Continue amiloride, furosemide, lisinopril. # GERD- cont famotidine DVT ppx - enoxaparin 40 mg sq daily Admission and Anticipated Discharge Date Admission Date: September 10, 2025 Results & Data Results & Data Vital Signs (Past 12 Hours) Vital Signs Temp Pulse Resp BP Pulse Ox O2 Del Method 09/13/25 07:51 97.9 F 56 L 20 126/76 97 Room Air 09/12/25 23:07 98.2 F 83 18 116/65 93 Room Air PG Care Time/CCT Total # of Minutes Spent Total Time Spent with Patient: Total time spent is greater than 50% in coordination of care (as documented) at patient's floor/unit and/or counseling patient: Coding Diagnoses Closed fracture of right tibial plateau S82.141A Encounter type: initial encounter Malignant neoplasm of lower-inner quadrant of left breast in female, estrogen receptor positive C50.312; Z17.0 History of tibial fracture Z87.81 (1) Closed fracture of right tibial plateau Encounter type: initial encounter Qualified Code(s): S82.141A - Displaced bicondylar fracture of right tibia, initial encounter for closed fracture
--- NOTE | 2025-09-13 11:11 | Orthopedic Progress Note ---
Date of Service September 13, 2025 Assessment & Plan (1) Closed fracture of right tibial plateau: Plan: Impression: Right medial tibial plateau fracture, comminuted, depressed ~20 mm, closed PLAN: NWB RLE, AFO brace on RLE when ambulatory RICE Continue with the knee immobilizer. Transfer to [place] trauma service for ORIF, through transfer center. Patient previously had a reaction to stainless steel implants, will require titanium implants. If able to be transported early today, recommend n.p.o, in case able to go to the OR later today. Pain control and DVT prophylaxis per primary service. Continue care per hospitalist service. Admission and Anticipated Discharge Date Admission Date: September 10, 2025 Subjective Doing well Physical Exam Physical Exam: RLE: Diminished sensation to light touch, patient notes she has neuropathy, unchanged. BCR <3 seconds. She has a foot drop, patient notes that it has been that way for 2 to 3 years. Results & Data Vital Signs (Past 12 Hours) Vital Signs Temp Pulse Resp BP Pulse Ox O2 Del Method 09/13/25 07:51 36.6 C 56 L 20 126/76 97 Room Air (1) Closed fracture of right tibial plateau Encounter type: initial encounter Qualified Code(s): S82.141A - Displaced bicondylar fracture of right tibia, initial encounter for closed fracture
--- NOTE | 2025-09-13 18:40 | Discharge Summary ---
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 Josefa has a complex/extensive medical history including remote anorectal cancer treated with surgery/chemo/XRT, breast cancer treated with surgery/chemo/XRT, both of these appear to be in remission, neuropathy resu ltant of cancer treatments including the right foot drop ever since her treatment for anal rectal cancer, and pulmonary sarcoidosis. orthopedics was consulted by the ED and CT was obtained. Unfortunately this is a complex fracture. Her case was discussed with Ortho trauma at [facility] They recommended right TKA, unfortunately they do not have a surgeon available for right TKA for at least a week or week and a half. Dr. Cobb consulted I discussed the plan of care patient cannot be placed in rehab with a fracture leg. I asked Dr. Cobb to reconsult [facility] and on 09/13, Dr. Rosenbaum with trauma service is willing to see the patient with possible surgery after transfer. Patient is accepted to transfer to go to [facility] on 09/13 with a return service agreement to eventually have placement. Pain control: cont scheduled APAP and PRN oxycodone Morphine sulfate 4 mg IV every 3 hours as needed for severe pain Narcan IV per protocol # severe chronic hypomagnesemia - on chronic oral supplement, continued. Mag 1.1 today. Ordered 4g IV. Recheck in AM. potassium normal. # R foot drop, peripheral neuropathy - I reviewed her previous chart notes extensively including heme/onc, primary care, and physical therapy notes. These symptoms are noted as far back as our accessible records go (2018) and are resultant of her previous treatment for anorectal cancer in the late 1990s. She confirms these are very longstanding issues -continue gabapentin # History of left tibial plateau fracture 2021- Patient reports left leg is shorter than the right, and periodically has knee pain and/or sacroiliac pain. # Breast cancer history- Continue tamoxifen # Chronic Diarrhea- Patient reports that she has explosive diarrhea if she does take Colestid 8 tablets in the morning and 4 tablets in the evening along with antidiarrheal medications. Stable # Hypertension/CHF- stable. euvolemic Continue amiloride, furosemide, lisinopril. # GERD- cont famotidine DVT ppx -on hold for possible surgical intervention Admission HPI Per Admitting Provider The patient is an 80-year-old female with past medical history including bilateral lower extremity edema, urinary tract infection, chronic venous insufficiency, malignant neoplasm of anus, history of left tibial fracture, peripheral neuropathy, sarcoidosis, osteoporosis, chronic reflux esophagitis, arthritis, and abnormal gait. She reports that she fell 8 days ago, and injured her right knee. She was seen by her PCP on 09/04/2025. She reports the injury happened when she was bending over to feed her cat, and her feet slipped on the floor, and she fell. She did not hit her head. Her only complaint is a right knee pain and swelling, which has been steadily improving, until few days ago was started to get worse, and then overnight became severe which she presented to the ED for assessment. In the ED she underwent x-ray of right knee and CT right knee which showed an acute comminuted midline medial tibial plateau fracture. Discharge Exam Female wearing a knee brace having some pain and mobility. Agreeable to transfer. Discharge Plan Discharge Items Patient Disposition: Transfer Acute Care Hospital Reason For Visit: R ACUTE COMM MIDLINE/MEDIAL TIBIAL PLATEAU FRACTUR Discharge Diagnosis: Right comminuted depressed medical tibial fracture, in need of surgical expertise Condition on Discharge: Fair Activity: Per Instructions section Non-emergency contact: Primary Care Provider and Surgeon Call non-emergency contact if: your symptoms worsen Follow-up/Referrals: Nancy Bhandari CRNP [Primary Care Provider] - Jackson Cobb MD [Physician] - Diet: Regular Addtl Attending Provider Instructions: pt is a cancer survivor from breast ( on chronic tamoxifen) and ano rectal, both treated with chemo and xrt, she has been stable. Medical problems include hypertension and HFpEF with last echo 22 EF 55-65 Pending Studies at Discharge: No Stand-Alone Forms: My [facility] Skilled Items Patient informed of condition?: Yes DNR: No Discharge Level of Care: Other Communicable Disease: No Discharge Prognosis: Stable Lines: Peripheral IV Urinary Catheter: No Medications and DC Order Prescriptions: Continued tamoxifen 20 mg tablet 20 mg PO QAM zoledronic cyda-ptkomzju-timft [Reclast] 5 mg/100 mL piggyback 1 ea IV YEARLY gabapentin 600 mg tablet 600 mg PO BID colestipol 1 gram tablet See Rx Instructions PO DAILY Rx Instructions: TAKE 8 TABLETS IN A.M. AND 4 TABLETS IN P.M. PO daily; econazole nitrate 1 % cream 1 applic topical BID PRN (Reason: rash) Qty: 15 0RF Rx Instructions: Apply to areas at corners of mouth 1-2 times daily for up to 7 days as needed for flaring. fluticasone propionate [Flonase Allergy Relief] 50 mcg/actuation spray,suspension 2 spray INTRANASAL QAM Qty: 48 3RF loperamide [Anti-Diarrheal (loperamide)] 2 mg capsule 2 mg PO QID famotidine 20 mg tablet 20 mg PO BID Macular Health Formula 5-1-7.5 mg capsule 1 cap PO DAILY amiloride 5 mg tablet 5 mg PO QAM amoxicillin 500 mg capsule 2,000 mg PO UD PRN (Reason: prior to dental procedure) Rx Instructions: 2,000 mg PO before dental procedures; diphenoxylate-atropine [Lomotil] 2.5-0.025 mg tablet 1 tab PO QID PRN (Reason: Diarrhea) mupirocin 2 % ointment 1 applic topical BID PRN (Reason: Dry Nasal Passages) Rx Instructions: 1 applic topical ADMINISTER INTO NOSTRIL BID; ferrous sulfate [Feosol] 325 mg (65 mg iron) tablet 325 mg PO DAILY PRN (Reason: ANEMIA) Qty: 30 0RF lisinopril 5 mg tablet 10 mg PO QAM magnesium chloride 64 mg tablet extended release 64 mg PO DAILY vitamin B complex Tablet 1 tab PO QAM furosemide 40 mg tablet 40 mg PO DAILY PRN (Reason: edema) Qty: 90 3RF (DME) Lift Chair Misc See Rx Instructions .Route Qty: 1 0RF Rx Instructions: As directed Acidophilus Capsule 1 cap PO BID loratadine [Claritin] 10 mg Tablet 10 mg PO DAILY PRN (Reason: Allergy Symptoms) cholecalciferol (vitamin D3) [Vitamin D3] 125 mcg (5,000 unit) tablet 5,000 unit PO BID Discharge Orders: Discharge Order (Routine); Ordered 09/13/25 Ordered By: Osvaldo Vargas Admission Data Admit Date/Time: 09/10/25 21:20 Attending Provider: Osvaldo Vargas Admit Provider: Be Lloyd Primary Care Provider: Nancy Bhandari Other Providers: Jackson Cobb; Be Lloyd Other Interventions: Discharge Summary Assessment (RN) Last Done: 09/13/25 11:53 Hospital Stay Data Consultations 09/10/25 20:17 ED Decision to Admit Stat 09/11/25 03:29 Consult Orthopedic Surgery Routine Diagnostic Imagining Performed 09/10/25 13:39 US venous doppler LE RT Stat 09/10/25 17:45 CT knee RT wo con Stat Pending Results Patient Have Any Pending Studies at Discharge: No Discharge Instructions Given to Patient (Per Discharging Provider) pt is a cancer survivor from breast ( on chronic tamoxifen) and ano rectal, both treated with chemo and xrt, she has been stable. Medical problems include hypertension and HFpEF with last echo 22 EF 55-65 Total Time Total Time Spent Total Time Spent (In Minutes): Discharge 30 including coordination of care with the transfer center on her multi physician phone call Coding Level of Care Code 73743 INP/OBS DISCH >30 MIN Diagnoses Closed fracture of right tibial plateau S82.141A Encounter type: initial encounter Malignant neoplasm of lower-inner quadrant of left breast in female, estrogen receptor positive C50.312; Z17.0 History of tibial fracture Z87.81
== END 2025-09-13 12:31 | disposition short-term general hospital (02) | DRG 543 ==
LOC: SUATTDRO → ED 12:49 → SUATTDRO 21:20 → 3N 21:20